=== PATIENT | female | born 1930 | race Caucasian/White ===

== ENCOUNTER 2017-08-30 16:35 | Inpatient (IN) | payer MEDICARE, BC ==
[2017-08-30] MEDS ORDERED: HYDROmorphone 0.5 MG/0.5 ML SYRINGE IVP STA ×2 (17:17→19:38)
[2017-08-30] MEDS ORDERED: SODIUM CHLORIDE 0.9% 500 ML IV ONE (18:39)
--- NOTE | 2017-08-30 18:42 | XR ---
EXAMINATION TYPE: XR Hip RT and AP Pelvis DATE OF EXAM: 08/30/2017 COMPARISON: Prior pelvis dated 08/11/2017 HISTORY: Pain, deformity TECHNIQUE: A single AP view of the pelvis is obtained. Two views of the right hip are obtained. FINDINGS: There is no acute fracture/dislocation evident in the pelvis. The hip and sacroiliac join ts appear symmetric and unremarkable. The overlying soft tissue appears unremarkable. Two views of right hip show no acute fracture or dislocation. No focal lytic or sclerotic lesion see n in the proximal right femur. The overlying soft tissue is unremarkable. There is osteoarthritic c hange in the right hip. Postop change noted to the left hip is stable. Osteoarthritic change also pre sent in the left hip. IMPRESSION: There is no acute fracture or dislocation in the pelvis or right hip.
--- NOTE | 2017-08-30 18:44 | XR ---
Right femur HISTORY: Trauma and pain 2 views of the right femur There is a distal femoral oblique fracture with displacement at the level of the metaphysis proximal to the patient's distal femoral prosthesis. There is associated angulation posteriorly, no definite d islocation. IMPRESSION: Distal femoral fracture.
--- NOTE | 2017-08-30 18:45 | XR ---
EXAMINATION TYPE: XR chest 1V DATE OF EXAM: 08/30/2017 COMPARISON: Prior chest x-ray 06/16/2017 HISTORY: Trauma and pain, femoral fracture TECHNIQUE: Single frontal view of the chest is obtained. FINDINGS: Patient is rotated. Lung volumes are low. Interstitium is somewhat prominent. No evident p neumothorax or pleural effusion. Heart size is likely stable. Questionable nodule right midlung. IMPRESSION: Expiratory rotated exam. Follow-up as indicated.
--- NOTE | 2017-08-30 19:00 | ED ---
Fall HPI - General Chief Complaint: Fall Stated Complaint: Knee injury Time Seen by Provider: 08/30/17 17:04 Source: patient, RN notes reviewed Mode of arrival: EMS - History of Present Illness Initial Comments: This is an 87-year-old female who presents to the emergency department with chief complaint of fall injury. Patient was transported to the emergency department via EMS. The fall occurred at approximately 3:30 PM this afternoon. Patient is accompanied by her , daughter and son. They state patient has severe dementia so she is unable to contribute to the history. They state that they're unsure if patient was getting up to use the bathroom or getting up from the toilet to return to her room, however the patient fell from ground level while using a walker. denies any head injury or loss of consciousness. Patient is not on any blood thinners, only taking 81 mg of aspirin daily. Patient fell on a tile floor. They're concerned about patient' s right knee, as it appears deformed and she complains of pain. They state the patient was recently here in the emergency room on August 11 after sustaining a fall and breaking her wrist. She has been doing therapy at the home she lives at with her . Patient does not voice any other complaints at this time. - Related Data Home Medications Medication Instructions Recorded Confirmed Aspirin 81 mg PO DAILY@199902/15/14 08/30/17 Docusate [Colace] 100 mg PO BID@0800,199902/15/14 08/30/17 Ergocalciferol [Vitamin D2 50,000 unit PO Q14D 02/15/14 08/30/17 (DRISDOL)] Furosemide [Lasix] 20 mg PO BID@0800,1400 02/15/14 08/30/17 Hydrochlorothiazide [Hydrodiuril] 25 mg PO DAILY@199902/15/14 08/30/17 Lisinopril [Zestril] 10 mg PO BID@0800,199902/15/14 08/30/17 Multivitamin/Iron/Folic Acid 1 tab PO DAILY@199902/15/14 08/30/17 [Centrum Complete Multivit Tab] Propafenone HCl [Propafenone HCl 225 mg PO BID@0800,199902/15/14 08/30/17 ER] Simvastatin [Zocor] 40 mg PO DAILY@199902/15/14 08/30/17 Cranberry Fruit Concentrate [Azo 250 mg PO DAILY@199906/16/17 08/30/17 Cranberry] Levothyroxine Sodium [Synthroid] 175 mcg PO DAILY 06/16/17 08/30/17 Metoprolol Succinate [Toprol XL] 100 mg PO DAILY@0800 06/16/17 08/30/17 Sertraline HCl [Zoloft] 25 mg PO DAILY@199906/16/17 08/30/17 Vit C/E/Zn/Coppr/Lutein/Zeaxan 2 cap PO DAILY@199906/16/17 08/30/17 [Preservision Areds 2 Softgel] ALPRAZolam [Xanax] 0.25 mg PO TID@0800,1400,199908/11/17 08/30/17 Ensure 0.5 can PO BID 08/11/17 08/30/17 Loratadine [Claritin] 10 mg PO DAILY 08/11/17 08/30/17 Omeprazole 20 mg PO DAILY 08/11/17 08/30/17 Potassium Chloride ER [K-Dur 20] 10 meq PO DAILY 08/11/17 08/30/17 Allergies Allergy/AdvReac Type Severity Reaction Status Date / Time codeine Allergy Rash/Hives Verified 08/30/17 16:55 lorazepam [From Ativan] Allergy Anaphylaxis Verified 08/30/17 16:55 meperidine HCl [From Demerol] Allergy Rash/Hives Verified 08/30/17 16:55 Review of Systems ROS Statement: Those systems with pertinent positive or pertinent negative responses have been documented in the HPI. ROS Other: All systems not noted in ROS Statement are negative. Past Medical History Past Medical History: Dementia, Hyperlipidemia, Hypertension, Osteoarthritis (OA ), Supraventricular Tachycardia (SVT) Additional Past Medical History / Comment(s): cataracts samantha History of Any Multi-Drug Resistant Organisms: None Reported Past Surgical History: Cholecystectomy, Orthopedic Surgery, Tonsillectomy Additional Past Surgical History / Comment(s): left hip plate, right knee replaced, partial thyroid removed Past Anesthesia/Blood Transfusion Reactions: Previous Problems w/ Anesthesia, Motion Sickness Past Psychological History: No Psychological Hx Reported Smoking Status: Never smoker Past Alcohol Use History: Occasional, Rare Past Drug Use History: None Reported General Exam - General Exam Comments Initial Comments: General: Awake, well-developed; in no apparent distress. Patient does not contribute to history due to severe dementia. Family members are at bedside. HEENT: Head atraumatic, normocephalic. Pupils are equal, round and reactive to light. Extraocular movements intact. Oropharynx appears dry. Neck: Supple. Normal ROM. Cardiovascular: Regular rate and rhythm. No murmurs, rubs or gallops. Chest symmetrical. Respiratory: Lungs clear to auscultation bilaterally. No wheezes, rales or rhonchi. Normal respiratory effort with no use of accessory muscles. Abdomen: Soft, non-tender, non-distended. No rigidity, rebound or guarding. Normal bowel sounds in all 4 quadrants. Musculoskeletal: Patient unable to flex her right knee. Right leg is internally rotated and knee has obvious gross deformity. Tenderness on palpation of right knee. No tenderness on palpation of right hip. Pedal pulses are 2+ equal and palpable bilaterally. Patient has normal range of motion of the left lower extremity and bilateral upper extremities. Skin: [place], warm and dry without rashes or lesions. Neurological: Alert and oriented x1. Limitations: altered mental status Course Vital Signs 08/30/17 08/30/17 16:41 19:32 Temperature 97.6 F 98.2 F Pulse Rate 74 76 Respiratory 18 18 Rate Blood Pressure 129/60 158/75 O2 Sat by Pulse 96 95 Oximetry Medical Decision Making - Medical Decision Making This is an 87-year-old female who presents to the emergency department for evaluation following a fall this afternoon. Patient has severe dementia so was unable to contribute to the history. Her family members were present. Patient had an obvious deformity of the right knee. Pedal pulses are 2+ equal and palpable bilaterally. She has a history of total knee arthroplasty done by Dr. Deshpande. X-ray revealed a distal femoral fracture. I spoke with Georgina the on- call physician school psychologist assistant for [facility]. Patient will be admitted to [facility]. A knee immobilizer was placed to the right knee. Patient's pain is controlled with Dilaudid. Basic labs are drawn patient had a be when of 44 and creatinine of 1.54. She was given fluid resuscitation while in the emergency department. Family members at bedside were made aware of the plan and they are in agreement. All questions were answered. - Lab Data Result diagrams: 08/30/17 19:30 08/30/17 19:30 Lab Results 08/30/17 08/30/17 Range/Units 19:30 19:30 WBC 9.9 (3.8-10.6) k/uL RBC 3.24 L (3.80-5.40) m/uL Hgb 9.5 L (11.4-16.0) gm/dL Hct 29.4 L (34.0-46.0) % MCV 90.5 (80.0-100.0) fL MCH 29.1 (25.0-35.0) pg MCHC 32.2 (31.0-37.0) g/dL RDW 14.0 (11.5-15.5) % Plt Count 223 (150-450) k/uL Neutrophils % 84 % Lymphocytes % 9 % Monocytes % 4 % Eosinophils % 0 % Basophils % 0 % Neutrophils # 8.3 H (1.3-7.7) k/uL Lymphocytes # 0.9 L (1.0-4.8) k/uL Monocytes # 0.4 (0-1.0) k/uL Eosinophils # 0.0 (0-0.7) k/uL Basophils # 0.0 (0-0.2) k/uL Sodium 137 (137-145) mmol/L Potassium 4.3 (3.5-5.1) mmol/L Chloride 100 (98-107) mmol/L Carbon Dioxide 27 (22-30) mmol/L Anion Gap 10 mmol/L BUN 44 H (7-17) mg/dL Creatinine 1.54 H (0.52-1.04) mg/dL Est GFR (MDRD) Af Amer 38 (>60 ml/min/1.73 sqM) Est GFR (MDRD) Non-Af 32 (>60 ml/min/1.73 sqM) Glucose 147 H (74-99) mg/dL Calcium 8.8 (8.4-10.2) mg/dL Total Bilirubin 0.3 (0.2-1.3) mg/dL AST 23 (14-36) U/L ALT 27 (9-52) U/L Alkaline Phosphatase 117 (38-126) U/L Total Protein 6.5 (6.3-8.2) g/dL Albumin 3.6 (3.5-5.0) g/dL - EKG Data EKG Comments: EKG 18:46:22. Sinus rhythm with first-degree AV block, nonspecific ST abnormality. Ventricular rate 75 bpm, MA interval 220, QRS duration 90, QT/QTc 402/448. - Radiology Data Radiology results: report reviewed Chest x-ray findings: Patient is rotated. Lung volumes are low. After stitching is somewhat prominent. No evident pneumothorax or pleural effusion. Heart size is likely stable. Questionable nodule right mid lung. Impression: Expiratory rotated exam. Follow-up as indicated. X-ray right hip and AP pelvis impression: There is no acute fracture or dislocation in the pelvis or right hip. X-ray right femur impression: Distal femoral fracture. CT brain and C-spine without contrast impression: 1. There is no acute fracture or dislocation evident in the cervical spine. 2. No acute intracranial hemorrhage, mass effect or midline shift is seen. Disposition Clinical Impression: Closed fracture of right distal femur, Fall Disposition: ADMITTED IP TO THIS [facility] Condition: Good Time of Disposition: 21:02
[2017-08-30] MEDS ORDERED: HYDROmorphone 0.5 MG/0.5 ML SYRINGE IM STA (19:25)
--- NOTE | 2017-08-30 19:29 | CT ---
EXAMINATION TYPE: CT brain cspine wo con DATE OF EXAM: 08/30/2017 COMPARISON: Prior CT brain and cervical spine 06/16/2017 HISTORY: Fall today. CT DLP: 1325 mGycm Automated exposure control for dose reduction was used. TECHNIQUE: CT scan of the head and cervical spine are performed without contrast. FINDINGS: There is no acute intracranial hemorrhage, mass effect, or midline shift identified. The ventricles and sulci are within normal limits in size. Brain density is stable. The globes are inta ct and the visualized sinuses are remarkable for air-fluid levels in the sphenoid sinus as on prior, suspect interval healing of patient's nasal bone fractures. There may be some improvement in aeration in the mastoids on the left. Cervical spine is visualized in its entirety from C1 through upper thoracic levels and demonstrates s atisfactory alignment without evidence of acute fracture or dislocation. Prevertebral soft tissue ap pears within normal limits. The C1-C2 articulation is unremarkable. Degenerative disc disease change is stable. IMPRESSION: 1. There is no acute fracture or dislocation evident in the cervical spine. 2. No acute intracranial hemorrhage, mass effect, or midline shift is seen.
[2017-08-30] MEDS ORDERED: NALOXONE 0.4 MG/ML 1 ML VIAL IV PRN (19:43)
[2017-08-30] MEDS ORDERED: ACETAMINOPHEN TAB 325 MG TAB PO PRN (19:43)
[2017-08-30] MEDS ORDERED: HYDROmorphone 2 MG/ML 1 ML SYRINGE IVP PRN (19:43)
[2017-08-30] MEDS ORDERED: SODIUM CHLORIDE 0.9% 1,000 ML IV SCH (19:45)
[2017-08-30 19:49] LABS: Basophils % (A) 0 %; Eosinophils % (A) 0 %; HCT 29.4 % (34.0-46.0); HGB 9.5 gm/dL (11.4-16.0); Lymphocytes # (A) 0.9 k/uL (1.0-4.8); Lymphocytes % (A) 9 %; MCH 29.1 pg (25.0-35.0); MCHC 32.2 g/dL (31.0-37.0); MCV 90.5 fL (80.0-100.0); Mean Platelet Volume 6.7; Monocytes # (A) 0.4 k/uL (0-1.0); Monocytes % (A) 4 %; Neutrophils # (A) 8.3 k/uL (1.3-7.7); Neutrophils % (A) 84 %; Platelet Count 223 k/uL (150-450); RBC 3.24 m/uL (3.80-5.40); WBC 9.9 k/uL (3.8-10.6)
[2017-08-30 19:57] LABS: Albumin 3.6 g/dL (3.5-5.0); Calcium 8.8 mg/dL (8.4-10.2); Potassium 4.3 mmol/L (3.5-5.1); Total Bilirubin 0.3 mg/dL (0.2-1.3); Total Protein 6.5 g/dL (6.3-8.2)
[2017-08-30] MEDS ORDERED: SODIUM CHLORIDE 0.9% 500 ML IV STA (20:59)
--- NOTE | 2017-08-30 21:32 | ED ---
General Adult HPI - General Chief complaint: Fall Stated complaint: Knee injury Time Seen by Provider: 08/30/17 17:04 Source: patient, family, RN notes reviewed, old records reviewed Mode of arrival: EMS Limitations: altered mental status - History of Present Illness Initial comments: Chief complaint and history of present illness an 87-year-old female here with a history of glioblastoma multi-forming. She had surgery on in the past half year recurrent has been proven by a recent MRI. The patient knows of these results. Patient also reports that she stood up after going to the bathroom and before she reached her walker she stumbled and fell. Complains discomfort to her left shoulder left hip and lumbosacral spine. Denies any head or neck injuries. - Related Data Home Medications Medication Instructions Recorded Confirmed Aspirin 81 mg PO DAILY@199902/15/14 08/30/17 Docusate [Colace] 100 mg PO BID@0800,199902/15/14 08/30/17 Ergocalciferol [Vitamin D2 50,000 unit PO Q14D 02/15/14 08/30/17 (DRISDOL)] Furosemide [Lasix] 20 mg PO BID@0800,1400 02/15/14 08/30/17 Hydrochlorothiazide [Hydrodiuril] 25 mg PO DAILY@199902/15/14 08/30/17 Lisinopril [Zestril] 10 mg PO BID@0800,199902/15/14 08/30/17 Multivitamin/Iron/Folic Acid 1 tab PO DAILY@199902/15/14 08/30/17 [Centrum Complete Multivit Tab] Propafenone HCl [Propafenone HCl 225 mg PO BID@0800,199902/15/14 08/30/17 ER] Simvastatin [Zocor] 40 mg PO DAILY@199902/15/14 08/30/17 Cranberry Fruit Concentrate [Azo 250 mg PO DAILY@199906/16/17 08/30/17 Cranberry] Levothyroxine Sodium [Synthroid] 175 mcg PO DAILY 06/16/17 08/30/17 Metoprolol Succinate [Toprol XL] 100 mg PO DAILY@0800 06/16/17 08/30/17 Sertraline HCl [Zoloft] 25 mg PO DAILY@199906/16/17 08/30/17 Vit C/E/Zn/Coppr/Lutein/Zeaxan 2 cap PO DAILY@199906/16/17 08/30/17 [Preservision Areds 2 Softgel] ALPRAZolam [Xanax] 0.25 mg PO TID@0800,1400,199908/11/17 08/30/17 Ensure 0.5 can PO BID 08/11/17 08/30/17 Loratadine [Claritin] 10 mg PO DAILY 08/11/17 08/30/17 Omeprazole 20 mg PO DAILY 08/11/17 08/30/17 Potassium Chloride ER [K-Dur 20] 10 meq PO DAILY 08/11/17 08/30/17 Allergies Allergy/AdvReac Type Severity Reaction Status Date / Time codeine Allergy Rash/Hives Verified 08/30/17 16:55 lorazepam [From Ativan] Allergy Anaphylaxis Verified 08/30/17 16:55 meperidine HCl [From Demerol] Allergy Rash/Hives Verified 08/30/17 16:55 Review of Systems ROS Statement: Those systems with pertinent positive or pertinent negative responses have been documented in the HPI. View of systems. Currently no complaint of visual acuity changes denies any headache. No neck pain. She has left shoulder discomfort but full range of motion denies chest pain or shortness of breath complains of lumbar pain. Also left hip area pain. States she fell while in her bathroom. All systems were reviewed. Past medical problems significant for brain cancer, glioblastoma diagnosed this past January. She's had surgery. Also history of insulin-dependent diabetes mellitus, and hypertension. Her surgeries include hysterectomy, she's had blood clot removed from her leg and lung. Family history noncontributory. ROS Other: All systems not noted in ROS Statement are negative. Past Medical History Past Medical History: Dementia, Hyperlipidemia, Hypertension, Osteoarthritis (OA ), Supraventricular Tachycardia (SVT) Additional Past Medical History / Comment(s): cataracts samantha History of Any Multi-Drug Resistant Organisms: None Reported Past Surgical History: Cholecystectomy, Orthopedic Surgery, Tonsillectomy Additional Past Surgical History / Comment(s): left hip plate, right knee replaced, partial thyroid removed Past Anesthesia/Blood Transfusion Reactions: Previous Problems w/ Anesthesia, Motion Sickness Past Psychological History: No Psychological Hx Reported Smoking Status: Never smoker Past Alcohol Use History: Occasional, Rare Past Drug Use History: None Reported General Exam Limitations: altered mental status Course Vital Signs 08/30/17 08/30/17 08/30/17 16:41 19:32 21:20 Temperature 97.6 F 98.2 F 97.0 F L Pulse Rate 74 76 71 Respiratory 18 18 18 Rate Blood Pressure 129/60 158/75 131/63 O2 Sat by Pulse 96 95 95 Oximetry Medical Decision Making - Medical Decision Making Rectal decision making; patient reports she fell recently. Complains of discomfort to the lumbar spine left shoulder and left hip area. Denies any head or neck injuries. X-rays of the left hip were done and reviewed by radiologist his impression is there is no acute fracture or dislocation in the pelvis or left hip. As read by Dr. Kothari X-rays of the lumbosacral spine were done and reviewed by the radiologist his impression is degenerative disc disease, osteopenia, facet arthropathy. Possible abdominal aortic aneurysm, follow-up nonemergent exam recommended. As read by Dr. Kothari X-ray of the patient's left shoulder was done and reviewed radiologist his impression is no acute fracture dislocation evident. As read by Dr. Kothari On emergency room the patient received a [place] at her request. Her daughter is here to drive her home. She's been advised follow-up with family physician as well as her oncologist for further evaluation of her recurrent glioblastoma. - Lab Data Result diagrams: 08/30/17 19:30 08/30/17 19:30 Lab Results 08/30/17 08/30/17 Range/Units 19:30 19:30 WBC 9.9 (3.8-10.6) k/uL RBC 3.24 L (3.80-5.40) m/uL Hgb 9.5 L (11.4-16.0) gm/dL Hct 29.4 L (34.0-46.0) % MCV 90.5 (80.0-100.0) fL MCH 29.1 (25.0-35.0) pg MCHC 32.2 (31.0-37.0) g/dL RDW 14.0 (11.5-15.5) % Plt Count 223 (150-450) k/uL Neutrophils % 84 % Lymphocytes % 9 % Monocytes % 4 % Eosinophils % 0 % Basophils % 0 % Neutrophils # 8.3 H (1.3-7.7) k/uL Lymphocytes # 0.9 L (1.0-4.8) k/uL Monocytes # 0.4 (0-1.0) k/uL Eosinophils # 0.0 (0-0.7) k/uL Basophils # 0.0 (0-0.2) k/uL Sodium 137 (137-145) mmol/L Potassium 4.3 (3.5-5.1) mmol/L Chloride 100 (98-107) mmol/L Carbon Dioxide 27 (22-30) mmol/L Anion Gap 10 mmol/L BUN 44 H (7-17) mg/dL Creatinine 1.54 H (0.52-1.04) mg/dL Est GFR (MDRD) Af Amer 38 (>60 ml/min/1.73 sqM) Est GFR (MDRD) Non-Af 32 (>60 ml/min/1.73 sqM) Glucose 147 H (74-99) mg/dL Calcium 8.8 (8.4-10.2) mg/dL Total Bilirubin 0.3 (0.2-1.3) mg/dL AST 23 (14-36) U/L ALT 27 (9-52) U/L Alkaline Phosphatase 117 (38-126) U/L Total Protein 6.5 (6.3-8.2) g/dL Albumin 3.6 (3.5-5.0) g/dL Disposition Clinical Impression: Closed fracture of right distal femur, Fall Disposition: ADMITTED IP TO THIS HOSP Condition: Good
[2017-08-30 22:26] VITALS: BMI 24.9
[2017-08-31] MEDS: HYDROmorphone 0.5 MG/0.5 ML SYRINGE IVP PRN (05:51)
[2017-08-31] MEDS ORDERED: LEVOTHYROXINE 100 MCG TAB PO SCH (06:30)
[2017-08-31] MEDS ORDERED: LEVOTHYROXINE 75 MCG TAB PO SCH (06:30)
[2017-08-31 07:17] LABS: Basophils % (A) 0 %; Eosinophils % (A) 0 %; HCT 26.2 % (34.0-46.0); HGB 8.2 gm/dL (11.4-16.0); Lymphocytes # (A) 0.7 k/uL (1.0-4.8); Lymphocytes % (A) 10 %; MCH 28.7 pg (25.0-35.0); MCHC 31.3 g/dL (31.0-37.0); MCV 91.5 fL (80.0-100.0); Mean Platelet Volume 7.6; Monocytes # (A) 0.4 k/uL (0-1.0); Monocytes % (A) 5 %; Neutrophils # (A) 6.2 k/uL (1.3-7.7); Neutrophils % (A) 82 %; Platelet Count 213 k/uL (150-450); RBC 2.86 m/uL (3.80-5.40); RDW 14.7 % (11.5-15.5); WBC 7.5 k/uL (3.8-10.6)
[2017-08-31] MEDS ORDERED: PANTOPRAZOLE 40 MG TABLET PO SCH (07:30)
[2017-08-31 07:38] LABS: Calcium 8.5 mg/dL (8.4-10.2); Potassium 3.9 mmol/L (3.5-5.1)
[2017-08-31] MEDS ORDERED: PANTOPRAZOLE SODIUM 40 MG GRANULE PKT PO SCH (07:45)
[2017-08-31] MEDS ORDERED: DOCUSATE 100 MG CAP PO SCH (08:00)
[2017-08-31] MEDS ORDERED: PROPAFENONE 225 MG PO SCH ×2 (08:00→09:00)
[2017-08-31] MEDS ORDERED: ALPRAZolam 0.25 MG TAB PO SCH (08:00)
[2017-08-31] MEDS ORDERED: LISINOPRIL 10 MG TAB PO SCH (08:00)
[2017-08-31] MEDS ORDERED: METOPROLOL SUCCINATE (ER) 100 MG TAB.ER.24H PO SCH (08:00)
[2017-08-31] MEDS: METOPROLOL SUCCINATE (ER) 100 MG TAB.ER.24H PO SCH (08:54)
[2017-08-31] MEDS: LISINOPRIL 10 MG TAB PO SCH ×2 (08:55→22:09)
[2017-08-31] MEDS: SERTRALINE 25 MG TAB PO SCH (08:55)
[2017-08-31] MEDS: LORATADINE 10 MG TAB PO SCH (08:55)
[2017-08-31] MEDS: DOCUSATE 100 MG CAP PO SCH ×2 (08:55→22:09)
[2017-08-31] MEDS: MULTIVITAMINS, THERA 1 EACH TAB PO SCH (08:55)
[2017-08-31] MEDS ORDERED: ENSURE PO SCH (09:00)
[2017-08-31] MEDS ORDERED: LORATADINE 10 MG TAB PO SCH (09:00)
[2017-08-31] MEDS: ALPRAZolam 0.25 MG TAB PO SCH ×3 (09:03→22:17)
--- NOTE | 2017-08-31 09:54 | P.HPOR ---
History of Present Illness H&P Date: 08/31/17 This is an 87-year-old female who has admitted for right distal femur fracture. Patient has a history of dementia and is a poor historian. No family is present in the room. Patient was evaluated in the emergency room on 08/30/2017 for a fall that occurred when the patient was walking back from the bathroom in her assisted living center. Patient has a history of right total knee arthroplasty. Patient denies any recent fever, chills, nausea/vomiting/diarrhea , back pain, numbness, tingling, headache, or visual changes, or any other complaints. Review of Systems See HPI. Past Medical History Past Medical History: Dementia, Hyperlipidemia, Hypertension, Osteoarthritis (OA ), Supraventricular Tachycardia (SVT) Additional Past Medical History / Comment(s): cataracts samantha History of Any Multi-Drug Resistant Organisms: None Reported Past Surgical History: Cholecystectomy, Orthopedic Surgery, Tonsillectomy Additional Past Surgical History / Comment(s): left hip plate, right knee replaced, partial thyroid removed Past Anesthesia/Blood Transfusion Reactions: Previous Problems w/ Anesthesia, Motion Sickness Past Psychological History: No Psychological Hx Reported Smoking Status: Never smoker Past Alcohol Use History: Occasional, Rare Past Drug Use History: None Reported Medications and Allergies Home Medications Medication Instructions Recorded Confirmed Type Aspirin 81 mg PO DAILY@199902/15/14 08/30/17 History Docusate [Colace] 100 mg PO BID@0800,199902/15/14 08/30/17 History Ergocalciferol [Vitamin D2 50,000 unit PO Q14D 02/15/14 08/30/17 History (DRISDOL)] Furosemide [Lasix] 20 mg PO BID@0800,1400 02/15/14 08/30/17 History Hydrochlorothiazide [Hydrodiuril] 25 mg PO DAILY@199902/15/14 08/30/17 History Lisinopril [Zestril] 10 mg PO BID@0800,199902/15/14 08/30/17 History Multivitamin/Iron/Folic Acid 1 tab PO DAILY@199902/15/14 08/30/17 History [Centrum Complete Multivit Tab] Propafenone HCl [Propafenone HCl 225 mg PO BID@0800,199902/15/14 08/30/17 History ER] Simvastatin [Zocor] 40 mg PO DAILY@199902/15/14 08/30/17 History Cranberry Fruit Concentrate [Azo 250 mg PO DAILY@199906/16/17 08/30/17 History Cranberry] Levothyroxine Sodium [Synthroid] 175 mcg PO DAILY 06/16/17 08/30/17 History Metoprolol Succinate [Toprol XL] 100 mg PO DAILY@0800 06/16/17 08/30/17 History Sertraline HCl [Zoloft] 25 mg PO DAILY@199906/16/17 08/30/17 History Vit C/E/Zn/Coppr/Lutein/Zeaxan 2 cap PO DAILY@199906/16/17 08/30/17 History [Preservision Areds 2 Softgel] ALPRAZolam [Xanax] 0.25 mg PO TID@0800,1400,199908/11/17 08/30/17 History Ensure 0.5 can PO BID 08/11/17 08/30/17 History Loratadine [Claritin] 10 mg PO DAILY 08/11/17 08/30/17 History Omeprazole 20 mg PO DAILY 08/11/17 08/30/17 History Potassium Chloride ER [K-Dur 20] 10 meq PO DAILY 08/11/17 08/30/17 History Allergies Allergy/AdvReac Type Severity Reaction Status Date / Time codeine Allergy Rash/Hives Verified 08/30/17 16:55 lorazepam [From Ativan] Allergy Anaphylaxis Verified 08/30/17 16:55 meperidine HCl [From Demerol] Allergy Rash/Hives Verified 08/30/17 16:55 Physical Examination On exam patient is in no acute distress. Patient has a history of dementia. Knee immobilizer is removed and there is deformity of the right lower extremity. The right distal femur is tender to palpation. Skin is intact. Mild soft tissue swelling. Calf is soft and nontender. Dorsalis pedis pulses 2+ . There is no tenderness to palpation, deformity, ecchymosis or swelling over the head, neck, bilateral upper extremities or left lower extremity. Results X-rays of the right femur show a distal femur fracture proximal to right total knee arthroplasty. X-rays of the right hip and pelvis are negative for any acute fracture dislocation. CT of the head and neck is negative for any acute fracture or dislocation of the cervical spine. No acute intracranial hemorrhage, mass effect, or midline shift seen. - Labs Labs: Abnormal Lab Results - Last 24 Hours (Table) 08/30/17 08/30/17 08/31/17 Range/Units 19:30 19:30 06:13 RBC 3.24 L 2.86 L (3.80-5.40) m/uL Hgb 9.5 L 8.2 L (11.4-16.0) gm/dL Hct 29.4 L 26.2 L (34.0-46.0) % Neutrophils # 8.3 H (1.3-7.7) k/uL Lymphocytes # 0.9 L 0.7 L (1.0-4.8) k/uL BUN 44 H (7-17) mg/dL Creatinine 1.54 H (0.52-1.04) mg/dL Glucose 147 H (74-99) mg/dL 08/31/17 Range/Units 06:13 RBC (3.80-5.40) m/uL Hgb (11.4-16.0) gm/dL Hct (34.0-46.0) % Neutrophils # (1.3-7.7) k/uL Lymphocytes # (1.0-4.8) k/uL BUN 40 H (7-17) mg/dL Creatinine 1.30 H (0.52-1.04) mg/dL Glucose 147 H (74-99) mg/dL H & H 08/30/17 08/31/17 Range/Units 19:30 06:13 Hgb 9.5 L 8.2 L (11.4-16.0) gm/dL Hct 29.4 L 26.2 L (34.0-46.0) % Result Diagrams: 08/31/17 06:13 08/31/17 06:13 Assessment and Plan (1) Closed fracture of right distal femur Current Visit: Yes Status: Acute Code(s): S72.401A - UNSP FRACTURE OF LOWER END OF RIGHT FEMUR, INIT FOR CLOS FX SNOMED Code(s): 084087654 (2) Fall Current Visit: Yes Status: Acute Code(s): W19.XXXA - UNSPECIFIED FALL, INITIAL ENCOUNTER SNOMED Code(s): 3521241 Plan: #1. Continue knee immobilizer and nonweightbearing to the right lower extremity. #2. Continue pain control #3. ORIF right distal femur scheduled for 09/01/2017 pending medical clearance consent.
[2017-08-31] MEDS: PROPAFENONE 150 MG TAB PO SCH ×3 (10:25→22:06)
[2017-08-31] MEDS: SODIUM CHLORIDE 0.9% 1,000 ML IV SCH ×2 (10:49→22:10)
--- NOTE | 2017-08-31 11:09 | P.CONS ---
History of Present Illness - Reason for Consult Consult date: 08/31/17 Medical management Requesting physician: Castro Alexis - Chief Complaint Status post fall with right distal femur fracture - History of Present Illness This is an 87-year-old female patient of Dr. Garrett with past medical history of dementia, hypertension, hyperlipidemia, supraventricular tachycardia , generalized osteoarthritis, hypothyroidism, patient was in her assisted living where she was trying to go to the bathroom and she fell and landed on the right side she sustained a distal right femur fracture for which she was evaluated in the emergency department and admitted under orthopedic surgery and we were consulted for preoperative medical clearance. Patient is very poor historian she has significant dementia and she does not remember what happened, most information was gathered from the chart as the patient lives in [facility]ursing home, where the fall happened and the patient was shipped to the ER at [facility] because of that and she was found to have a right distal femur fracture. Patient scheduled to go for ORIF of the right femur tomorrow morning. I reviewed her 12-lead EKG that showed normal sinus rhythm with nonspecific ST- T changes, echocardiogram was obtained for further evaluation. Review of Systems Constitutional: Denies chronic headaches, Denies lethargy, Denies malaise, Denies weight gain, Denies weight loss Eyes: denies blurred vision, denies bulging eye, denies decreased vision Ears: deny: decreased hearing Ears, nose, mouth and throat: Denies dysphagia, Denies neck lump, Denies sore throat, Denies vertigo Cardiovascular: Denies chest pain, Denies decreased exercise tolerance, Denies lightheadedness, Denies rapid heart beat, Denies shortness of breath, Denies syncope Respiratory: Denies congestion, Denies cough, Denies cough with sputum, Denies home oxygen, Denies sleep apnea, Denies snoring, Denies wheezing Gastrointestinal: Denies abdominal pain, Denies belching, Denies BRBPR, Denies heartburn, Denies melena, Denies nausea, Denies vomiting Genitourinary: Denies dysuria, Denies hematuria Musculoskeletal: Reports fractures, Reports gait dysfunction Musculoskeletal: right: ankle pain, ankle stiffness, ankle swelling, hip pain, hip stiffness, hip swelling, knee pain, knee stiffness, absent: elbow pain, elbow stiffness, elbow swelling, foot pain, foot stiffness, foot swelling, hand pain, hand stiffness, hand swelling, knee swelling, shoulder pain, shoulder stiffness, shoulder swelling, wrist pain, wrist stiffness, wrist swelling Integumentary: Denies pruritus, Denies rash Neurological: Reports confusion, Reports memory loss, Reports weakness, Denies tingling, Denies tremors Psychiatric: Reports anxiety, Reports memory loss, Denies depression, Denies sadness/tearfulness, Denies sleep disturbances, Denies suicidal ideation Endocrine: Denies fatigue, Denies weight change Past Medical History Past Medical History: Dementia, GERD/Reflux, Hyperlipidemia, Hypertension, Memory Impairment, Musculoskeletal Disorder, Osteoarthritis (OA), Supraventricular Tachycardia (SVT), Thyroid Disorder Additional Past Medical History / Comment(s): cataracts samantha History of Any Multi-Drug Resistant Organisms: None Reported Past Surgical History: Cholecystectomy, Orthopedic Surgery, Tonsillectomy Additional Past Surgical History / Comment(s): left hip plate, right knee replaced, partial thyroid removed Past Anesthesia/Blood Transfusion Reactions: Previous Problems w/ Anesthesia, Motion Sickness Past Psychological History: No Psychological Hx Reported Smoking Status: Never smoker Past Alcohol Use History: Occasional, Rare Past Drug Use History: None Reported - Past Family History Mother Family Medical History: Coronary Artery Disease (CAD) (Mother at age 74 from CAD and diabetes complication.) Father Family Medical History: Neurologic Disorder (Father at age of 76 from Parkinson.) Brother(s) Family Medical History: Coronary Artery Disease (CAD), Diabetes Mellitus ( Patient has one brother with diabetes and CAD.) Sister(s) Family Medical History: COPD (Sister with history of COPD and permanent pacemaker.) Medications and Allergies Home Medications Medication Instructions Recorded Confirmed Type Aspirin 81 mg PO DAILY@199902/15/14 08/30/17 History Docusate [Colace] 100 mg PO BID@0800,199902/15/14 08/30/17 History Ergocalciferol [Vitamin D2 50,000 unit PO Q14D 02/15/14 08/30/17 History (DRISDOL)] Furosemide [Lasix] 20 mg PO BID@0800,1400 02/15/14 08/30/17 History Hydrochlorothiazide [Hydrodiuril] 25 mg PO DAILY@199902/15/14 08/30/17 History Lisinopril [Zestril] 10 mg PO BID@0800,199902/15/14 08/30/17 History Multivitamin/Iron/Folic Acid 1 tab PO DAILY@199902/15/14 08/30/17 History [Centrum Complete Multivit Tab] Propafenone HCl [Propafenone HCl 225 mg PO BID@0800,199902/15/14 08/30/17 History ER] Simvastatin [Zocor] 40 mg PO DAILY@199902/15/14 08/30/17 History Cranberry Fruit Concentrate [Azo 250 mg PO DAILY@199906/16/17 08/30/17 History Cranberry] Levothyroxine Sodium [Synthroid] 175 mcg PO DAILY 06/16/17 08/30/17 History Metoprolol Succinate [Toprol XL] 100 mg PO DAILY@0806/16/17 08/30/17 History Sertraline HCl [Zoloft] 25 mg PO DAILY@199906/16/17 08/30/17 History Vit C/E/Zn/Coppr/Lutein/Zeaxan 2 cap PO DAILY@199906/16/17 08/30/17 History [Preservision Areds 2 Softgel] ALPRAZolam [Xanax] 0.25 mg PO TID@0800,1400,199908/11/17 08/30/17 History Ensure 0.5 can PO BID 08/11/17 08/30/17 History Loratadine [Claritin] 10 mg PO DAILY 08/11/17 08/30/17 History Omeprazole 20 mg PO DAILY 08/11/17 08/30/17 History Potassium Chloride ER [K-Dur 20] 10 meq PO DAILY 08/11/17 08/30/17 History Allergies Allergy/AdvReac Type Severity Reaction Status Date / Time codeine Allergy Rash/Hives Verified 08/30/17 16:55 lorazepam [From Ativan] Allergy Anaphylaxis Verified 08/30/17 16:55 meperidine HCl [From Demerol] Allergy Rash/Hives Verified 08/30/17 16:55 Physical Exam Vitals: Vital Signs Temp Pulse Pulse Resp BP BP Pulse Ox 08/31/17 08:53 97.5 F L 72 16 132/70 95 08/31/17 00:16 97.8 F 73 16 125/72 95 08/30/17 21:40 97.6 F 72 16 122/59 96 08/30/17 21:20 97.0 F L 71 18 131/63 95 08/30/17 19:32 98.2 F 76 18 158/75 95 08/30/17 16:41 97.6 F 74 18 129/60 96 Intake and Output 08/30/17 08/31/17 08/31/17 22:59 06:59 14:59 Other: Voiding Method Incontinent # Voids 1 Weight 74.389 kg - Constitutional General appearance: average body habitus, no acute distress - EENT Eyes: anicteric sclerae, EOMI, PERRLA, no ptosis, normal appearance ENT: hard of hearing, NA/AT, normal oropharynx, no thrush Ears: bilateral: normal - Neck Neck: no lymphadenopathy, no rigidity, no stridor, no thyromegaly Carotids: bilateral: upstroke delayed Thyroid: bilateral: normal size - Respiratory Respiratory: bilateral: diminished, negative: dullness, rales, rhonchi, wheezing , prolonged expiration, prolonged inspiration - Cardiovascular Rhythm: regular Heart sounds: normal: S1, S2 Abnormal Heart Sounds: systolic murmur, no S3 Gallop, no S4 Gallop, no click - Gastrointestinal General gastrointestinal: normal bowel sounds, no rigid, no tenderness, no umbilical hernia, no ventral hernia - Integumentary Integumentary: normal, normal turgor - Neurologic Neurologic: CNII-XII intact, focal deficits - Musculoskeletal Musculoskeletal: generalized weakness, strength equal bilaterally - Psychiatric Psychiatric: no A&O x's 3, no appropriate affect, no intact judgment & insight Results CBC & Chem 7: 09/01/17 17:42 08/31/17 06:13 Labs: Abnormal Lab Results - Last 24 Hours (Table) 08/30/17 08/30/17 08/31/17 Range/Units 19:30 19:30 06:13 RBC 3.24 L 2.86 L (3.80-5.40) m/uL Hgb 9.5 L 8.2 L (11.4-16.0) gm/dL Hct 29.4 L 26.2 L (34.0-46.0) % Neutrophils # 8.3 H (1.3-7.7) k/uL Lymphocytes # 0.9 L 0.7 L (1.0-4.8) k/uL BUN 44 H (7-17) mg/dL Creatinine 1.54 H (0.52-1.04) mg/dL Glucose 147 H (74-99) mg/dL 08/31/17 Range/Units 06:13 RBC (3.80-5.40) m/uL Hgb (11.4-16.0) gm/dL Hct (34.0-46.0) % Neutrophils # (1.3-7.7) k/uL Lymphocytes # (1.0-4.8) k/uL BUN 40 H (7-17) mg/dL Creatinine 1.30 H (0.52-1.04) mg/dL Glucose 147 H (74-99) mg/dL Assessment and Plan Assessment: Assessment and Plan: 1. Status post fall with right distal femur fracture. Patient was seen in consultation by orthopedic surgery, she is going to ORIF tomorrow morning, 12- lead EKG was obtained showed normal sinus rhythm with no acute ST-T wave changes , echocardiogram was obtained, to obtain LV function, there is no Indication for the proposed surgical intervention, surgery may carry the risk a few complications, we will maintain patient on beta marlo in the form of metoprolol, and monitor her postoperative state with anticoagulation. 2. Acute kidney injury due to poor oral intake of fluid. IV fluid in the form of normal saline at 75 ml/ hour, repeat CMP magnesium tomorrow morning. 3. Hypertension and hypertensive cardiovascular disease. Continue metoprolol 100 mg orally once every day as well as lisinopril 10 mg orally once every day. 4. Hypothyroidism. Continue patient on Synthroid 175 g orally once every day. 5. Hyperlipidemia. Continue patient on Lipitor 10 mg orally once every day. 6. Atrial tachycardia. Continue patient on propafenone 150 mg orally 3 times every day. 7. Vascular dementia. Monitor patient for behavioral disturbances postoperatively. 8. Osteoarthritis. Continue current pain management. 9. Anxiety disorder. Continue with sertraline 25 mg orally once every day. 10. ALLERGIC rhinitis. Continue loratadine 10 mg orally once every day. 11. Vitamin D deficiency. Continue vitamin D 50,000 units once every week. 12. DVT prophylaxis. Patient will be restarted Lovenox 30 mg subcutaneously every 12 hours postoperatively, along with Coumadin keep her INR between 2-3. 13. GI prophylaxis. Start the patient on Protonix 40 mg orally daily. 14. Osteoporosis. Patient will need to be started on prolia twice a year as an outpatient. 15. UTI. Continue patient on Rocephin, obtain urine culture and blood culture. 16. Patient is no CODE STATUS. 17. Thank you Dr. Alexis for allowing me to participate in the care of your patient, we will follow the patient along with you.
[2017-08-31] MEDS ORDERED: SERTRALINE 25 MG TAB PO SCH (20:00)
[2017-08-31] MEDS ORDERED: NON-FORMULARY DRUG (Cranberry Fruit Concentrate [Azo Cranberry] 250 MG) PO SCH (20:00)
[2017-08-31] MEDS ORDERED: [UNRECOGNIZED DRUG - OTHER] PO SCH (20:00)
[2017-08-31] MEDS ORDERED: ATORVASTATIN 20 MG TAB PO SCH (20:00)
[2017-08-31] MEDS ORDERED: MULTIVITAMINS, THERA 1 EACH TAB PO SCH (20:00)
[2017-08-31] MEDS: ATORVASTATIN 20 MG TAB PO SCH (22:09)
[2017-09-01] MEDS: HYDROmorphone 0.5 MG/0.5 ML SYRINGE IVP PRN ×2 (02:20→21:06)
[2017-09-01] MEDS: LEVOTHYROXINE 75 MCG TAB PO SCH (07:36)
[2017-09-01] MEDS: ALPRAZolam 0.25 MG TAB PO SCH ×4 (07:36→21:07)
[2017-09-01] MEDS: PANTOPRAZOLE 40 MG TABLET PO SCH (07:36)
[2017-09-01] MEDS: LEVOTHYROXINE 100 MCG TAB PO SCH (07:36)
[2017-09-01] MEDS: DOCUSATE 100 MG CAP PO SCH (07:37)
[2017-09-01] MEDS: LORATADINE 10 MG TAB PO SCH (07:37)
[2017-09-01] MEDS: MULTIVITAMINS, THERA 1 EACH TAB PO SCH (07:37)
[2017-09-01] MEDS: SERTRALINE 25 MG TAB PO SCH (07:37)
[2017-09-01] MEDS: PROPAFENONE 150 MG TAB PO SCH ×3 (07:44→21:12)
[2017-09-01] MEDS: LISINOPRIL 10 MG TAB PO SCH ×2 (07:44→21:08)
[2017-09-01] MEDS: METOPROLOL SUCCINATE (ER) 100 MG TAB.ER.24H PO SCH (07:44)
[2017-09-01] MEDS: SODIUM CHLORIDE 0.9% 1,000 ML IV SCH ×2 (07:45→16:39)
[2017-09-01] MEDS ORDERED: NALOXONE 0.4 MG/ML 1 ML VIAL IV PRN (08:25)
[2017-09-01] MEDS ORDERED: MAGNESIUM HYDROXIDE 2,400 MG/10 ML CUP PO PRN (08:25)
[2017-09-01] MEDS ORDERED: HYDROmorphone 0.5 MG/0.5 ML SYRINGE IVP PRN ×2 (08:25)
[2017-09-01] MEDS ORDERED: HYDROcodone/APAP 5-325MG 1 EACH TAB PO PRN ×2 (08:25)
[2017-09-01] MEDS ORDERED: KETAMINE 10 MG/ML 20 ML VIAL ONE (08:36)
[2017-09-01] MEDS ORDERED: PHENYLEPHRINE-0.9% NACL SYG 1 MG/10 ML SYRINGE ONE (08:36)
[2017-09-01] MEDS ORDERED: fentaNYL (PF) 50 MCG/ML 2 ML AMP ONE (08:36)
[2017-09-01] MEDS ORDERED: diphenhydrAMINE 50 MG/ML 1 ML VIAL ONE (08:36)
[2017-09-01] MEDS ORDERED: IV FLUID CONTINUATION 500 ML IV ONE (08:36)
[2017-09-01] MEDS ORDERED: SODIUM CHLORIDE 0.9% 100 ML with ceFAZolin 2,000 MG IV ONE ×2 (09:07)
[2017-09-01 09:08] LABS: Basophils % (A) 0 %; Eosinophils # (A) 0.1 k/uL (0-0.7); Eosinophils % (A) 1 %; HCT 24.7 % (34.0-46.0); HGB 7.7 gm/dL (11.4-16.0); Lymphocytes # (A) 1.1 k/uL (1.0-4.8); Lymphocytes % (A) 12 %; MCH 29.3 pg (25.0-35.0); MCHC 31.3 g/dL (31.0-37.0); MCV 93.6 fL (80.0-100.0); Mean Platelet Volume 7.1; Monocytes # (A) 0.6 k/uL (0-1.0); Monocytes % (A) 7 %; Neutrophils # (A) 7.1 k/uL (1.3-7.7); Neutrophils % (A) 77 %; Platelet Count 196 k/uL (150-450); RBC 2.64 m/uL (3.80-5.40); RDW 13.9 % (11.5-15.5); WBC 9.3 k/uL (3.8-10.6)
[2017-09-01] MEDS ORDERED: ceFAZolin 1,000 MG in SODIUM CHLORIDE 0.9% 1,000 ML IRRIGATION ONE (09:18)
[2017-09-01] MEDS ORDERED: LACTATED RINGERS 1,000 ML IV ONE ×2 (09:40)
--- NOTE | 2017-09-01 10:54 | P.OP ---
Date of Procedure: 09/01/17 Preoperative Diagnosis: Comminuted periprosthetic distal femur fracture right Postoperative Diagnosis: Comminuted periprosthetic distal femur fracture, right Procedure(s) Performed: Open reduction and internal fixation comminuted periprosthetic fracture, right distal femur Implants: [employer] right 8 hole distal femoral plate. Multiple locking and nonlocking screws. Anesthesia: spinal Surgeon: Castro Alexis Commis Chef #1: Georgina Dai Estimated Blood Loss (ml): 150 Pathology: none sent Condition: stable Disposition: PACU Indications for Procedure: This is an 87-year-old female who fell while at assisted living. Per the patient's family, she is a very minimal ambulator and has dementia. She sustained a comminuted displaced periprosthetic right distal femur fracture above a right knee replacement. After discussing the surgical and nonsurgical treatment options for her family at length, I have recommended an open reduction and internal fixation of right distal femur and informed consent was obtained. Operative Findings: The operative findings are consistent with a comminuted periprosthetic right distal femur fracture Description of Procedure: The patient was seen in the preoperative area. The consent was reviewed, and the operative site was marked with a skin marker. The patient was then brought to the operating room, and given 2 g of Ancef intravenously. Spinal anesthetic was administered by the anesthesia department. A Maguire catheter was then placed by the nursing staff. Patient was then placed on the operating table supine, with the bony prominences well-padded. The right lower extremity was then prepped and draped in usual sterile fashion. A universal timeout was then performed which confirmed the patient's name, surgical site, ALLERGIES, and consent. The patient is leg was placed on a radiolucent triangle. C-arm was used to visualize the fracture site. An incision was made on the lateral aspect of the knee through the skin and subcutaneous tissues, then through the fascia. Through this incision, the fracture was able to be reduced by manual means and also with traction. The appropriate plate was placed on the lateral aspect of the femur and held provisionally both proximally and distally. The proximal screws were placed through small stab incisions in the skin. Fluoroscopic x-rays confirmed reduction of the fracture, and placement of the plate. Screws were then placed both proximally and distally, both locking and nonlocking to secure the fracture site. After the final screws were placed, final x-ray was obtained which show the fracture reduced in good position alignment, and the screws and plate in good position alignment. The knee was then taken through range of motion under fluoroscopy and the fracture was found to be stable. The wounds were irrigated with sterile saline. Closed with #1 Vicryl for the fascia. A 2-0 Vicryl for subcutaneous tissues, and kenny for the skin. Sterile dressings were applied. She was then taken to the recovery room in stable condition. Asst. AMITA Hammond was required due the complexity of surgery the need for skilled surgical services assistant.
--- NOTE | 2017-09-01 10:55 | FL ---
FLUOROSCOPY 173 seconds of fluoroscopy time were utilized during internal fixation of the distal right femur. 3 i mages document the procedure.
[2017-09-01 11:54] LABS: Appearance,Urine Turbid (Clear); Bilirubin,Urine Negative (Negative); Blood,Urine Small (Negative); Color,Urine Yellow; Glucose,Urine (UA) Negative (Negative); Ketones,Urine Negative (Negative); Leukocyte Esterase,Urine Large (Negative); Nitrite,Urine Negative (Negative); PH, Urine 5.5 (5.0-8.0); Protein,Urine Trace (Negative); RBC,Urine 29 /hpf (0-5); Specific Gravity,Urine 1.014 (1.001-1.035); Urobilinogen,Urine <2.0 mg/dL (<2.0); WBC,Urine >182 /hpf (0-5)
[2017-09-01] MEDS ORDERED: FUROSEMIDE 10 MG/ML 2 ML VIAL IV ONE (11:59)
[2017-09-01] MEDS: ENOXAPARIN 30 MG/0.3 ML SYRINGE SQ SCH ×2 (12:17→21:08)
--- NOTE | 2017-09-01 12:32 | P.PN ---
Subjective Progress Note Date: 09/01/17 This is an 87-year-old female patient of Dr. Garrett with past medical history of dementia, hypertension, hyperlipidemia, supraventricular tachycardia , generalized osteoarthritis, hypothyroidism, patient was in her assisted living where she was trying to go to the bathroom and she fell and landed on the right side she sustained a distal right femur fracture for which she was evaluated in the emergency department and admitted under orthopedic surgery and we were consulted for preoperative medical clearance. Patient is very poor historian she has significant dementia and she does not remember what happened, most information was gathered from the chart as the patient lives in [facility], where the fall happened and the patient was shipped to the ER at [facility] because of that and she was found to have a right distal femur fracture. Patient scheduled to go for ORIF of the right femur tomorrow morning. I reviewed her 12-lead EKG that showed normal sinus rhythm with nonspecific ST- T changes, echocardiogram was obtained for further evaluation. 09/01: Patient has undergone open reduction internal fixation today with Dr. Alexis. Hemoglobin dropped to 7.7 and patient is undergoing transfusion 2 units packed RBCs. Repeat CBC is ordered for after transfusion. Patient has been started on Coumadin protocol and Lovenox added to bridge patient. We will repeat chemistry will be added for tomorrow to monitor acute kidney injury. Urinalysis done this morning is showing turbid, blood small, leukoesterase large , RBCs 29, WBC greater than 182 and WBC clumps moderate. Urine culture was sent. Echocardiogram report is pending. Objective - Vital Signs Vital signs: Vital Signs Temp 97.8 F 09/01/17 07:30 Pulse 84 09/01/17 07:30 Resp 16 09/01/17 07:31 BP 156/70 09/01/17 07:30 Pulse Ox 96 09/01/17 07:30 Intake & Output 08/31/17 09/01/17 09/01/17 18:59 06:59 18:59 Intake Total 601 Balance 601 Intake: IV 601 Other: Voiding Method Incontinent Bedpan Bedpan # Voids 1 2 - Exam General appearance: average body habitus, no acute distress - Neck Neck: no lymphadenopathy, no rigidity, no stridor, no thyromegaly Carotids: bilateral: upstroke delayed Thyroid: bilateral: normal size - Respiratory Respiratory: bilateral: diminished, negative: dullness, rales, rhonchi, wheezing , prolonged expiration, prolonged inspiration - Cardiovascular Rhythm: regular Heart sounds: normal: S1, S2 Abnormal Heart Sounds: systolic murmur, no S3 Gallop, no S4 Gallop, no click - Gastrointestinal General gastrointestinal: normal bowel sounds, no rigid, no tenderness, no umbilical hernia, no ventral hernia - Integumentary Integumentary: normal, normal turgor - Neurologic Neurologic: CNII-XII intact, focal deficits - Musculoskeletal Musculoskeletal: generalized weakness, strength equal bilaterally - Psychiatric Psychiatric: no A&O x's 3, no appropriate affect, no intact judgment & insight - Labs CBC & Chem 7: 09/01/17 08:56 08/31/17 06:13 Labs: Abnormal Lab Results - Last 24 Hours (Table) 09/01/17 Range/Units 08:56 RBC 2.64 L (3.80-5.40) m/uL Hgb 7.7 L (11.4-16.0) gm/dL Hct 24.7 L (34.0-46.0) % Assessment and Plan Plan: 1. Status post fall with right distal femur fracture status post open reduction internal fixation. We will maintain patient on beta marlo in the form of metoprolol, and monitor her postoperative state with anticoagulation. 2. Acute kidney injury due to poor oral intake of fluid. IV fluid in the form of normal saline at 75 ml/ hour, repeat CMP magnesium tomorrow morning. 3. Acute blood loss anemia, transfusion 2 units packed RBCs. Recheck CBC this afternoon and in the morning. 4. Urinary tract infection. Rocephin started. Overweight urine culture report. 5. Hypertension and hypertensive cardiovascular disease. Continue metoprolol 100 mg orally once every day as well as lisinopril 10 mg orally once every day. 6. Hypothyroidism. Continue patient on Synthroid 175 g orally once every day. 7. Hyperlipidemia. Continue patient on Lipitor 10 mg orally once every day. 8. Atrial tachycardia. Continue patient on propafenone 150 mg orally 3 times every day. 9. Vascular dementia. Monitor patient for behavioral disturbances postoperatively. 10. Osteoarthritis. Continue current pain management. 11. Generalized anxiety disorder. Continue with sertraline 25 mg orally once every day. 12. ALLERGIC rhinitis. Continue loratadine 10 mg orally once every day. 13. Vitamin D deficiency. Continue vitamin D 50,000 units once every week. 14. DVT prophylaxis. Patient will be restarted Lovenox 30 mg subcutaneously every 12 hours postoperatively, along with Coumadin keep her INR between 2-3. 15. GI prophylaxis. Start the patient on Protonix 40 mg orally daily. 16. Osteoporosis. Patient will need to be started on prolia twice a year as an outpatient. 17. Patient is no CODE STATUS. Discharge plan: Subacute rehab Impression and plan of care have been directed as dictated by the signing physician. Faby Rosa nurse practitioner acting as scribe for signing physician.
[2017-09-01] MEDS: cefTRIAXone IN SWFI 1,000 MG/10 ML SYRINGE IVP SCH (13:14)
[2017-09-01] MEDS: ceFAZolin IN SWFI 2 GM/20 ML SYRINGE IVP SCH (16:39)
[2017-09-01 17:57] LABS: Basophils % (A) 0 %; Eosinophils % (A) 0 %; HCT 30.5 % (34.0-46.0); HGB 10.1 gm/dL (11.4-16.0); Lymphocytes # (A) 0.8 k/uL (1.0-4.8); Lymphocytes % (A) 8 %; MCH 29.4 pg (25.0-35.0); MCV 89.1 fL (80.0-100.0); Mean Platelet Volume 6.9; Monocytes # (A) 0.6 k/uL (0-1.0); Monocytes % (A) 7 %; Neutrophils # (A) 7.6 k/uL (1.3-7.7); Neutrophils % (A) 82 %; Platelet Count 171 k/uL (150-450); RBC 3.42 m/uL (3.80-5.40); RDW 15.1 % (11.5-15.5); WBC 9.2 k/uL (3.8-10.6)
[2017-09-01] MEDS ORDERED: WARFARIN 2.5 MG TAB PO ONE (18:00)
[2017-09-01] MEDS: ATORVASTATIN 20 MG TAB PO SCH (21:08)
[2017-09-01] MEDS: SENNOSIDES-DOCUSATE SODIUM 1 EACH TAB PO SCH (21:11)
[2017-09-02] MEDS: ceFAZolin IN SWFI 2 GM/20 ML SYRINGE IVP SCH (01:58)
[2017-09-02 07:40] LABS: INR 1.3 (<1.2); Prothrombin Time 12.4 sec (9.0-12.0)
[2017-09-02] MEDS: SODIUM CHLORIDE 0.9% 1,000 ML IV SCH ×5 (08:06→17:43)
[2017-09-02] MEDS: LEVOTHYROXINE 75 MCG TAB PO SCH (08:09)
[2017-09-02] MEDS: LORATADINE 10 MG TAB PO SCH (08:10)
[2017-09-02] MEDS: ENOXAPARIN 30 MG/0.3 ML SYRINGE SQ SCH (08:10)
[2017-09-02] MEDS: PANTOPRAZOLE 40 MG TABLET PO SCH (08:10)
[2017-09-02] MEDS: LEVOTHYROXINE 100 MCG TAB PO SCH (08:10)
[2017-09-02] MEDS: LISINOPRIL 10 MG TAB PO SCH ×2 (08:10→21:42)
[2017-09-02] MEDS: METOPROLOL SUCCINATE (ER) 100 MG TAB.ER.24H PO SCH (08:10)
[2017-09-02] MEDS: ALPRAZolam 0.25 MG TAB PO SCH ×3 (08:10→21:42)
[2017-09-02] MEDS: PROPAFENONE 150 MG TAB PO SCH ×3 (08:10→21:42)
[2017-09-02] MEDS: cefTRIAXone IN SWFI 1,000 MG/10 ML SYRINGE IVP SCH (08:17)
--- NOTE | 2017-09-02 08:46 | ECHOF ---
Referral Reason:LVF MEASUREMENTS -------- HEIGHT: 172.7 cm WEIGHT: 74.4 kg BP: IVSd: 0.9 cm (0.6 - 1.1) LVIDd: 3.8 cm (3.9 - 5.3) LVPWd: 1.0 cm (0.6 - 1.1) IVSs: 1.6 cm LVIDs: 1.5 cm LVPWs: 1.6 cm Ao Diam: 2.5 cm (2.0 - 3.7) AV Cusp: 1.8 cm (1.5 - 2.6) LA Diam: 3.3 cm (2.7 - 3.8) MV EXCURSION: 7.289 mm (> 18.000) MV EF SLOPE: 53 mm/s (70 - 150) EPSS: 0.6 cm MV E Erick: 0.71 m/s MV DecT: 208 ms MV A Erick: 0.78 m/s MV E/A Ratio: 0.91 RAP: 5.00 mmHg RVSP: 45.62 mmHg FINDINGS -------- Sinus rhythm. This was a technically adequate study. Pt. not compliant. The left ventricular size is normal. Left ventricular wall thickness is normal. Overall left vent ricular systolic function is normal with, an EF between 55 - 60 %. The right ventricle is normal in size and function. The left atrium is normal in size. The right atrium is normal in size. There is mild aortic valve sclerosis. Mild mitral annular calcification present. [id number] mitral regurgitation is present. Moderate to severe tricuspid regurgitation present. There is mild pulmonary hypertension. The rig ht ventricular systolic pressure, as measured by Doppler, is 45.62mmHg. The pulmonic valve was not well visualized. There is no pulmonic regurgitation present. The aortic root size is normal. There is no pericardial effusion. CONCLUSIONS -------- 1. Sinus rhythm. 2. This was a technically adequate study. 3. Pt. not compliant. 4. Left ventricular wall thickness is normal. 5. Overall left ventricular systolic function is normal with, an EF between 55 - 60 %. 6. The left atrium is normal in size. 7. There is mild aortic valve sclerosis. 8. Mild mitral annular calcification present. 9. Sgws-aq-pqvmzyul mitral regurgitation is present. 10. Moderate to severe tricuspid regurgitation present. 11. There is mild pulmonary hypertension. 12. There is no pulmonic regurgitation present. 13. The aortic root size is normal. 14. There is no pericardial effusion. DIRECTOR TALENT: Dahiana Milton RDCS
[2017-09-02] MEDS: SERTRALINE 25 MG TAB PO SCH (09:00)
--- NOTE | 2017-09-02 09:54 | P.PN ---
Subjective Progress Note Date: 09/02/17 This is an 87-year-old female who is status post ORIF of the right distal femur. This is postoperative day #1. Patient has a history of dementia. Patient does not remember that her right leg was injured or that she had surgery. Patient is lying comfortably in bed. No events overnight. Objective - Vital Signs Vital signs: Vital Signs Temp 98.3 F 09/02/17 07:15 Pulse 96 09/02/17 07:15 Resp 16 09/02/17 07:15 BP 144/67 09/02/17 07:15 Pulse Ox 96 09/02/17 07:15 Intake & Output 09/01/17 09/02/17 09/02/17 18:59 06:59 18:59 Intake Total 1921 Output Total 1750 350 Balance 171 -350 Intake: IV 1301 Blood Product 620 Rc As-1 Unit 310 [id number] Rc As-1 Unit 310 [id number] Output: Urine 1600 350 Uretheral (Maguire) 900 350 Estimated Blood Loss 150 Other: Voiding Method Indwelling Catheter Indwelling Catheter - Exam On exam patient is awake and in no acute distress. Surgical dressing is removed. Incision is clean, dry and intact. Surgical clips in place. No drainage. Calf is soft and nontender. Patient has full foot and ankle motion without difficulty or pain. Dorsalis pedis pulse 2+. Right foot is warm and well perfused. Neurovascular status and circulatory status are intact. - Labs CBC & Chem 7: 09/01/17 17:42 08/31/17 06:13 Labs: Abnormal Lab Results - Last 24 Hours (Table) 09/01/17 09/01/17 09/01/17 Range/Units 08:56 08:56 11:15 RBC 2.64 L (3.80-5.40) m/uL Hgb 7.7 L (11.4-16.0) gm/dL Hct 24.7 L (34.0-46.0) % Lymphocytes # (1.0-4.8) k/uL PT (9.0-12.0) sec INR (<1.2) Urine Appearance Turbid H (Clear) Urine Protein Trace H (Negative) Urine Blood Small H (Negative) Ur Leukocyte Esterase Large H (Negative) Urine RBC 29 H (0-5) /hpf Urine WBC >182 H (0-5) /hpf Urine WBC Clumps Moderate H (None) /hpf Crossmatch See Detail 09/01/17 09/02/17 Range/Units 17:42 06:43 RBC 3.42 L (3.80-5.40) m/uL Hgb 10.1 L (11.4-16.0) gm/dL Hct 30.5 L (34.0-46.0) % Lymphocytes # 0.8 L (1.0-4.8) k/uL PT 12.4 H (9.0-12.0) sec INR 1.3 H (<1.2) Urine Appearance (Clear) Urine Protein (Negative) Urine Blood (Negative) Ur Leukocyte Esterase (Negative) Urine RBC (0-5) /hpf Urine WBC (0-5) /hpf Urine WBC Clumps (None) /hpf Crossmatch Microbiology - Last 24 Hours (Table) 09/01/17 11:15 Urine Culture - Preliminary Urine,Catheterized Assessment and Plan (1) Closed fracture of right distal femur Current Visit: Yes Status: Acute Code(s): S72.401A - UNSP FRACTURE OF LOWER END OF RIGHT FEMUR, INIT FOR CLOS FX SNOMED Code(s): 741992181 (2) Fall Current Visit: Yes Status: Acute Code(s): W19.XXXA - UNSPECIFIED FALL, INITIAL ENCOUNTER SNOMED Code(s): 3531425 Plan: #1. Nonweightbearing to the right lower extremity. #2. Daily Dressing changes #2. Continue pain control #4. Continue anticoagulation #5. We'll continue to follow the patient closely.
[2017-09-02] MEDS: MULTIVITAMINS, THERA 1 EACH TAB PO SCH (11:53)
--- NOTE | 2017-09-02 14:39 | P.PN ---
Subjective Progress Note Date: 09/02/17 This is an 87-year-old female patient of Dr. Garrett with past medical history of dementia, hypertension, hyperlipidemia, supraventricular tachycardia , generalized osteoarthritis, hypothyroidism, patient was in her assisted living where she was trying to go to the bathroom and she fell and landed on the right side she sustained a distal right femur fracture for which she was evaluated in the emergency department and admitted under orthopedic surgery and we were consulted for preoperative medical clearance. Patient is very poor historian she has significant dementia and she does not remember what happened, most information was gathered from the chart as the patient lives in [facility] living [facility], where the fall happened and the patient was shipped to the ER at [facility] because of that and she was found to have a right distal femur fracture. Patient scheduled to go for ORIF of the right femur tomorrow morning. I reviewed her 12-lead EKG that showed normal sinus rhythm with nonspecific ST- T changes, echocardiogram was obtained for further evaluation. 09/01: Patient has undergone open reduction internal fixation today with Dr. Alexis. Hemoglobin dropped to 7.7 and patient is undergoing transfusion 2 units packed RBCs. Repeat CBC is ordered for after transfusion. Patient has been started on Coumadin protocol and Lovenox added to bridge patient. We will repeat chemistry will be added for tomorrow to monitor acute kidney injury. Urinalysis done this morning is showing turbid, blood small, leukoesterase large , RBCs 29, WBC greater than 182 and WBC clumps moderate. Urine culture was sent. Echocardiogram report is pending. 09/02: Repeat hemoglobin is 10.1. A shunt has been afebrile. INR is at 1.3. Patient is scheduled to receive 5 mg of Coumadin tonight. A shunt appears to be comfortable. Social work is working with family for discharge plan. Objective - Vital Signs Vital signs: Vital Signs Temp 98.3 F 09/02/17 07:15 Pulse 96 09/02/17 07:15 Resp 16 09/02/17 08:00 BP 144/67 09/02/17 07:15 Pulse Ox 96 09/02/17 07:15 Intake & Output 09/01/17 09/02/17 09/02/17 18:59 06:59 18:59 Intake Total 1921 Output Total 1750 350 Balance 171 -350 Intake: IV 1301 Blood Product 620 Rc As-1 Unit 310 [id number] Rc As-1 Unit 310 [id number] Output: Urine 1600 350 Uretheral (Maguire) 900 350 Estimated Blood Loss 150 Other: Voiding Method Indwelling Catheter Indwelling Catheter Indwelling Catheter - Labs CBC & Chem 7: 09/01/17 17:42 08/31/17 06:13 Labs: Abnormal Lab Results - Last 24 Hours (Table) 09/01/17 09/01/17 09/01/17 Range/Units 08:56 11:15 17:42 RBC 3.42 L (3.80-5.40) m/uL Hgb 10.1 L (11.4-16.0) gm/dL Hct 30.5 L (34.0-46.0) % Lymphocytes # 0.8 L (1.0-4.8) k/uL PT (9.0-12.0) sec INR (<1.2) Urine Appearance Turbid H (Clear) Urine Protein Trace H (Negative) Urine Blood Small H (Negative) Ur Leukocyte Esterase Large H (Negative) Urine RBC 29 H (0-5) /hpf Urine WBC >182 H (0-5) /hpf Urine WBC Clumps Moderate H (None) /hpf Crossmatch See Detail 09/02/17 Range/Units 06:43 RBC (3.80-5.40) m/uL Hgb (11.4-16.0) gm/dL Hct (34.0-46.0) % Lymphocytes # (1.0-4.8) k/uL PT 12.4 H (9.0-12.0) sec INR 1.3 H (<1.2) Urine Appearance (Clear) Urine Protein (Negative) Urine Blood (Negative) Ur Leukocyte Esterase (Negative) Urine RBC (0-5) /hpf Urine WBC (0-5) /hpf Urine WBC Clumps (None) /hpf Crossmatch Microbiology - Last 24 Hours (Table) 09/01/17 11:15 Urine Culture - Preliminary Urine,Catheterized
[2017-09-02] MEDS: WARFARIN 5 MG TAB PO SCH (17:40)
[2017-09-02] MEDS: SENNOSIDES-DOCUSATE SODIUM 1 EACH TAB PO SCH (21:42)
[2017-09-02] MEDS: ATORVASTATIN 20 MG TAB PO SCH (21:42)
[2017-09-03 07:15] LABS: Basophils % (A) 0 %; Eosinophils # (A) 0.1 k/uL (0-0.7); Eosinophils % (A) 1 %; HCT 26.7 % (34.0-46.0); Lymphocytes # (A) 0.9 k/uL (1.0-4.8); Lymphocytes % (A) 10 %; MCHC 32.3 g/dL (31.0-37.0); MCV 89.7 fL (80.0-100.0); Mean Platelet Volume 7.2; Monocytes # (A) 0.6 k/uL (0-1.0); Monocytes % (A) 7 %; Neutrophils # (A) 6.7 k/uL (1.3-7.7); Neutrophils % (A) 79 %; Platelet Count 184 k/uL (150-450); RBC 2.97 m/uL (3.80-5.40); RDW 15.2 % (11.5-15.5); WBC 8.4 k/uL (3.8-10.6)
[2017-09-03 07:20] LABS: HGB 8.6 gm/dL (11.4-16.0)
[2017-09-03] MEDS: PROPAFENONE 150 MG TAB PO SCH ×3 (09:38→22:06)
[2017-09-03] MEDS: LISINOPRIL 10 MG TAB PO SCH ×2 (09:39→20:27)
[2017-09-03] MEDS: ENOXAPARIN 30 MG/0.3 ML SYRINGE SQ SCH (09:39)
[2017-09-03] MEDS: MULTIVITAMINS, THERA 1 EACH TAB PO SCH (09:39)
[2017-09-03] MEDS: LEVOTHYROXINE 75 MCG TAB PO SCH (09:39)
[2017-09-03] MEDS: METOPROLOL SUCCINATE (ER) 100 MG TAB.ER.24H PO SCH (09:40)
[2017-09-03] MEDS: LEVOTHYROXINE 100 MCG TAB PO SCH (09:40)
[2017-09-03] MEDS: PANTOPRAZOLE 40 MG TABLET PO SCH (09:40)
[2017-09-03] MEDS: LORATADINE 10 MG TAB PO SCH (09:40)
[2017-09-03] MEDS: SERTRALINE 25 MG TAB PO SCH (09:40)
[2017-09-03] MEDS: ALPRAZolam 0.25 MG TAB PO SCH ×3 (12:18→22:06)
[2017-09-03] MEDS: cefTRIAXone IN SWFI 1,000 MG/10 ML SYRINGE IVP SCH (12:19)
[2017-09-03 12:27] LABS: INR 1.9 (<1.2); Prothrombin Time 17.5 sec (9.0-12.0)
[2017-09-03] MEDS: SODIUM CHLORIDE 0.9% 1,000 ML IV SCH (12:44)
--- NOTE | 2017-09-03 15:17 | P.PN ---
Subjective Progress Note Date: 09/03/17 This is an 87-year-old female patient of Dr. Garrett with past medical history of dementia, hypertension, hyperlipidemia, supraventricular tachycardia , generalized osteoarthritis, hypothyroidism, patient was in her assisted living where she was trying to go to the bathroom and she fell and landed on the right side she sustained a distal right femur fracture for which she was evaluated in the emergency department and admitted under orthopedic surgery and we were consulted for preoperative medical clearance. Patient is very poor historian she has significant dementia and she does not remember what happened, most information was gathered from the chart as the patient lives in [facility] living [facility], where the fall happened and the patient was shipped to the ER at [facility] because of that and she was found to have a right distal femur fracture. Patient scheduled to go for ORIF of the right femur tomorrow morning. I reviewed her 12-lead EKG that showed normal sinus rhythm with nonspecific ST- T changes, echocardiogram was obtained for further evaluation. 09/01: Patient has undergone open reduction internal fixation today with Dr. Alexis. Hemoglobin dropped to 7.7 and patient is undergoing transfusion 2 units packed RBCs. Repeat CBC is ordered for after transfusion. Patient has been started on Coumadin protocol and Lovenox added to bridge patient. We will repeat chemistry will be added for tomorrow to monitor acute kidney injury. Urinalysis done this morning is showing turbid, blood small, leukoesterase large , RBCs 29, WBC greater than 182 and WBC clumps moderate. Urine culture was sent. Echocardiogram report is pending. 09/02: Repeat hemoglobin is 10.1. A shunt has been afebrile. INR is at 1.3. Patient is scheduled to receive 5 mg of Coumadin tonight. A shunt appears to be comfortable. Social work is working with family for discharge plan. 09/03: She has had a drop in her hemoglobin to 8.6. INR is 1.9. He is scheduled for Coumadin 5 mg tonight. Maguire catheter to be removed today. Urine culture was positive for Enterococcus faecalis. Antibiotics will be changed over to oral Levaquin. Anticipate discharge to [facility] or [facility] tomorrow. Objective - Vital Signs Vital signs: Vital Signs Temp 98.3 F 09/03/17 02:26 Pulse 79 09/03/17 02:26 Resp 17 09/03/17 02:26 BP 156/76 09/03/17 02:26 Pulse Ox 98 09/03/17 02:26 Intake & Output 09/02/17 09/03/17 09/03/17 18:59 06:59 18:59 Intake Total 600 Output Total 540 Balance 600 -540 Intake: IV 600 Sodium Chloride 0.9% 1, 600 000 ml @ 75 mls/hr IV . [id number] [facility] Rx#:[id number] Output: Urine 540 Uretheral (Maguire) 340 Other: Voiding Method Indwelling Catheter Indwelling Catheter - Exam General appearance: average body habitus, no acute distress - Neck Neck: no lymphadenopathy, no rigidity, no stridor, no thyromegaly Carotids: bilateral: upstroke delayed Thyroid: bilateral: normal size - Respiratory Respiratory: bilateral: diminished, negative: dullness, rales, rhonchi, wheezing , prolonged expiration, prolonged inspiration - Cardiovascular Rhythm: regular Heart sounds: normal: S1, S2 Abnormal Heart Sounds: systolic murmur, no S3 Gallop, no S4 Gallop, no click - Gastrointestinal General gastrointestinal: normal bowel sounds, no rigid, no tenderness, no umbilical hernia, no ventral hernia - Integumentary Integumentary: normal, normal turgor - Neurologic Neurologic: CNII-XII intact, focal deficits - Musculoskeletal Musculoskeletal: generalized weakness, strength equal bilaterally - Psychiatric Psychiatric: no A&O x's 3, no appropriate affect, no intact judgment & insight - Labs CBC & Chem 7: 09/03/17 06:10 08/31/17 06:13 Labs: Abnormal Lab Results - Last 24 Hours (Table) 09/03/17 Range/Units 06:10 RBC 2.97 L (3.80-5.40) m/uL Hgb 8.6 L D (11.4-16.0) gm/dL Hct 26.7 L (34.0-46.0) % Lymphocytes # 0.9 L (1.0-4.8) k/uL Assessment and Plan Plan: 1. Status post fall with right distal femur fracture status post open reduction internal fixation. We will maintain patient on beta marlo in the form of metoprolol, and monitor her postoperative state with anticoagulation. 2. Acute kidney injury due to poor oral intake of fluid. IV fluid in the form of normal saline at 75 ml/ hour, repeat CMP magnesium tomorrow morning. 3. Acute blood loss anemia, transfusion 2 units packed RBCs. Recheck CBC in the morning. 4. Enterococcus urinary tract infection. Rocephin changed to Levaquin. 5. Hypertension and hypertensive cardiovascular disease. Continue metoprolol 100 mg orally once every day as well as lisinopril 10 mg orally once every day. 6. Hypothyroidism. Continue patient on Synthroid 175 g orally once every day. 7. Hyperlipidemia. Continue patient on Lipitor 10 mg orally once every day. 8. Atrial tachycardia. Continue patient on propafenone 150 mg orally 3 times every day. 9. Vascular dementia. Monitor patient for behavioral disturbances postoperatively. 10. Osteoarthritis. Continue current pain management. 11. Generalized anxiety disorder. Continue with sertraline 25 mg orally once every day. 12. ALLERGIC rhinitis. Continue loratadine 10 mg orally once every day. 13. Vitamin D deficiency. Continue vitamin D 50,000 units once every week. 14. DVT prophylaxis. Patient will be restarted Lovenox 30 mg subcutaneously every 12 hours postoperatively, along with Coumadin keep her INR between 2-3. 15. GI prophylaxis. Start the patient on Protonix 40 mg orally daily. 16. Osteoporosis. Patient will need to be started on prolia twice a year as an outpatient. 17. Patient is no CODE STATUS. Discharge plan: Subacute rehab tomorrow Impression and plan of care have been directed as dictated by the signing physician. Faby Rosa nurse practitioner acting as scribe for signing physician.
--- NOTE | 2017-09-03 15:22 | P.DS ---
Providers Date of admission: 08/30/17 20:51 Expected date of discharge: 09/03/17 Attending physician: Castro Alexis Consults: 08/31/17 08:50 Consult Physician Routine Consulting Provider: Gabriela Rosen Consult Reason/Comments: Medical Management Do you want consulting provider notified?: Already Contacted Primary care physician: Solomon Garrett - Discharge Diagnosis(es) (1) Closed fracture of right distal femur Current Visit: Yes Status: Acute (2) Fall Current Visit: Yes Status: Acute Hospital Course: This is a 87-year-old female who sustained a right distal femur fracture after a fall. The patient presents for evaluation. After discussion and consideration patient and family elects to proceed with ORIF right distal femur. The patient is seen preoperatively by Dr. Alexis and cleared for surgery. Patient is admitted to [facility] on 08/30/2017 and ORIF of right distal femur was performed on 09/01/2017. The procedures performed without complication or sequelae. The patient is doing well postoperatively. Labs and vital signs are stable on day of discharge. On day of discharge patient's incision is healing well. There is minimal erythema. There is no drainage noted at this time. There is minimal soft tissue swelling to the knee. Patient has full foot and ankle motion without difficulty or pain. Neurovascular status to the right lower extremity is intact. Patient is discharged to rehab in good condition. Please see med rec for accurate list of home medications. Patient Condition at Discharge: Good Plan - Discharge Summary Discharge Rx Participant: No New Discharge Prescriptions: New Acetaminophen [Acetaminophen ER] 650 mg PO Q6HR PRN #90 tablet.er PRN Reason: Pain Sennosides [Senokot] 1 tab PO BID #60 tablet No Action Lisinopril [Zestril] 10 mg PO BID@0800,2000 Propafenone HCl [Propafenone HCl ER] 225 mg PO BID@0800,2000 Hydrochlorothiazide [Hydrodiuril] 25 mg PO DAILY@2000 Furosemide [Lasix] 20 mg PO BID@0800,1400 Docusate [Colace] 100 mg PO BID@0800,2000 Aspirin 81 mg PO DAILY@2000 Simvastatin [Zocor] 40 mg PO DAILY@2000 Ergocalciferol [Vitamin D2 (DRISDOL)] 50,000 unit PO Q14D Multivitamin/Iron/Folic Acid [Centrum Complete Multivit Tab] 1 tab PO DAILY@ 1999 Cranberry Fruit Concentrate [Azo Cranberry] 250 mg PO DAILY@1999 Levothyroxine Sodium [Synthroid] 175 mcg PO DAILY Metoprolol Succinate [Toprol XL] 100 mg PO DAILY@0800 Sertraline HCl [Zoloft] 25 mg PO DAILY@1999 Vit C/E/Zn/Coppr/Lutein/Zeaxan [Preservision Areds 2 Softgel] 2 cap PO DAILY@ 1999 ALPRAZolam [Xanax] 0.25 mg PO TID@0800,1400,1999 Ensure 0.5 can PO BID Loratadine [Claritin] 10 mg PO DAILY Omeprazole 20 mg PO DAILY Potassium Chloride ER [K-Dur 20] 10 meq PO DAILY Discharge Medication List Aspirin 81 mg PO DAILY@199902/15/14 [History] Docusate [Colace] 100 mg PO BID@0800,199902/15/14 [History] Ergocalciferol [Vitamin D2 (DRISDOL)] 50,000 unit PO Q14D 02/15/14 [History] Furosemide [Lasix] 20 mg PO BID@0800,1400 02/15/14 [History] Hydrochlorothiazide [Hydrodiuril] 25 mg PO DAILY@199902/15/14 [History] Lisinopril [Zestril] 10 mg PO BID@0800,199902/15/14 [History] Multivitamin/Iron/Folic Acid [Centrum Complete Multivit Tab] 1 tab PO DAILY@ 199902/15/14 [History] Propafenone HCl [Propafenone HCl ER] 225 mg PO BID@0800,199902/15/14 [History] Simvastatin [Zocor] 40 mg PO DAILY@199902/15/14 [History] Cranberry Fruit Concentrate [Azo Cranberry] 250 mg PO DAILY@199906/16/17 [ History] Levothyroxine Sodium [Synthroid] 175 mcg PO DAILY 06/16/17 [History] Metoprolol Succinate [Toprol XL] 100 mg PO DAILY@0800 06/16/17 [History] Sertraline HCl [Zoloft] 25 mg PO DAILY@199906/16/17 [History] Vit C/E/Zn/Coppr/Lutein/Zeaxan [Preservision Areds 2 Softgel] 2 cap PO DAILY@ 199906/16/17 [History] ALPRAZolam [Xanax] 0.25 mg PO TID@0800,1400,199908/11/17 [History] Ensure 0.5 can PO BID 08/11/17 [History] Loratadine [Claritin] 10 mg PO DAILY 08/11/17 [History] Omeprazole 20 mg PO DAILY 08/11/17 [History] Potassium Chloride ER [K-Dur 20] 10 meq PO DAILY 08/11/17 [History] Acetaminophen [Acetaminophen ER] 650 mg PO Q6HR PRN #90 tablet.er 09/03/17 [Rx] Sennosides [Senokot] 1 tab PO BID #60 tablet 09/03/17 [Rx] Follow up Appointment(s)/Referral(s): Solomon Garrett MD [Primary Care Provider] - 1-2 days Sis Zayas, [NON-STAFF] - As Needed Castor Alexis DO [Doctor of Osteopathic Medicine] - 10 Days Activity/Diet/Wound Care/Special Instructions: Nonweightbearing to the right lower extremity Daily dressing changes Rest, ice and elevate the right lower extremity Please take medications as prescribed. [facility]10 [facility]. Please call with any questions or concerns, Discharge Disposition: TRANSFER TO SNF/ECF
[2017-09-03] MEDS: ATORVASTATIN 20 MG TAB PO SCH (20:27)
[2017-09-03] MEDS: WARFARIN 5 MG TAB PO SCH (20:28)
[2017-09-03] MEDS: SENNOSIDES-DOCUSATE SODIUM 1 EACH TAB PO SCH (20:28)
[2017-09-04] MEDS: LEVOTHYROXINE 75 MCG TAB PO SCH (06:20)
[2017-09-04] MEDS: LEVOTHYROXINE 100 MCG TAB PO SCH (06:20)
[2017-09-04 06:46] LABS: HGB 8.9 gm/dL (11.4-16.0); Hypochromasia Slight; MCH 28.6 pg (25.0-35.0); MCHC 31.8 g/dL (31.0-37.0); MCV 89.8 fL (80.0-100.0); Mean Platelet Volume 7.9; Platelet Count 239 k/uL (150-450); RBC 3.12 m/uL (3.80-5.40); RDW 15.8 % (11.5-15.5); WBC 8.8 k/uL (3.8-10.6)
[2017-09-04 06:48] LABS: INR 4.7 (<1.2); Prothrombin Time 41.9 sec (9.0-12.0)
[2017-09-04 06:56] LABS: ALT 36 U/L (9-52); AST 52 U/L (14-36); Albumin 2.6 g/dL (3.5-5.0); Alkaline Phosphatase 115 U/L (38-126); Anion Gap 12 mmol/L; Blood Urea Nitrogen 23 mg/dL (7-17); Calcium 8.1 mg/dL (8.4-10.2); Carbon Dioxide 24 mmol/L (22-30); Chloride 110 mmol/L (98-107); Glucose 135 mg/dL (74-99); Sodium 146 mmol/L (137-145); Total Bilirubin 0.5 mg/dL (0.2-1.3); Total Protein 5.3 g/dL (6.3-8.2)
[2017-09-04] MEDS: SERTRALINE 25 MG TAB PO SCH (07:58)
[2017-09-04] MEDS: PANTOPRAZOLE 40 MG TABLET PO SCH (07:58)
[2017-09-04] MEDS: MULTIVITAMINS, THERA 1 EACH TAB PO SCH (07:58)
[2017-09-04] MEDS: METOPROLOL SUCCINATE (ER) 100 MG TAB.ER.24H PO SCH (07:58)
[2017-09-04] MEDS: LORATADINE 10 MG TAB PO SCH (07:58)
[2017-09-04] MEDS: LISINOPRIL 10 MG TAB PO SCH ×2 (07:58→21:01)
[2017-09-04] MEDS: PROPAFENONE 150 MG TAB PO SCH ×3 (07:59→21:01)
[2017-09-04] MEDS: ENOXAPARIN 30 MG/0.3 ML SYRINGE SQ SCH (07:59)
[2017-09-04] MEDS ORDERED: POTASSIUM CHLORIDE 20 MEQ in WATER FOR INJECTION 1 100ML.BAG IVPB SCH (08:00)
[2017-09-04] MEDS: POTASSIUM CHLORIDE ER 20 MEQ TAB.ER PO SCH ×2 (09:12→11:19)
--- NOTE | 2017-09-04 09:17 | P.PN ---
Subjective Progress Note Date: 09/04/17 This is an 87-year-old female who is status post ORIF of the right distal femur. This is postoperative day #3. Patient has a history of dementia. Patient does not remember that her right leg was injured or that she had surgery. Patient is lying comfortably in bed. Patient's discharge was postponed due to atrial fibrillation. Objective - Vital Signs Vital signs: Vital Signs Temp 97.5 F L 09/04/17 01:00 Pulse 85 09/04/17 01:00 Resp 16 09/04/17 01:00 BP 120/68 09/04/17 01:00 Pulse Ox 98 09/04/17 01:00 Intake & Output 09/03/17 09/04/17 09/04/17 18:59 06:59 18:59 Intake Total 150 480 Output Total 100 Balance 150 380 Weight 74.389 kg Intake: IV 150 Sodium Chloride 0.9% 1, 150 000 ml @ 75 mls/hr IV . [id number] [facility] Rx#:[id number] Oral 480 Output: Urine 100 Uretheral (Maguire) 100 Other: Voiding Method Indwelling Catheter # Bowel Movements 1 - Exam On exam patient is awake and in no acute distress. Incision's are clean, dry and intact. Surgical clips in place. No drainage. Calf is soft and nontender. Patient has full foot and ankle motion without difficulty or pain. Dorsalis pedis pulse 2+. Right foot is warm and well perfused. Neurovascular status and circulatory status are intact. - Labs CBC & Chem 7: 09/04/17 06:24 09/04/17 06:24 Labs: Abnormal Lab Results - Last 24 Hours (Table) 09/03/17 09/04/17 09/04/17 Range/Units 06:10 06:24 06:24 RBC 3.12 L (3.80-5.40) m/uL Hgb 8.9 L (11.4-16.0) gm/dL Hct 28.0 L (34.0-46.0) % RDW 15.8 H (11.5-15.5) % PT 17.5 H 41.9 H (9.0-12.0) sec INR 1.9 H 4.7 H (<1.2) Sodium (137-145) mmol/L Potassium (3.5-5.1) mmol/L Chloride (98-107) mmol/L BUN (7-17) mg/dL Glucose (74-99) mg/dL Calcium (8.4-10.2) mg/dL AST (14-36) U/L Total Protein (6.3-8.2) g/dL Albumin (3.5-5.0) g/dL 09/04/17 Range/Units 06:24 RBC (3.80-5.40) m/uL Hgb (11.4-16.0) gm/dL Hct (34.0-46.0) % RDW (11.5-15.5) % PT (9.0-12.0) sec INR (<1.2) Sodium 146 H (137-145) mmol/L Potassium 3.0 L* (3.5-5.1) mmol/L Chloride 110 H (98-107) mmol/L BUN 23 H (7-17) mg/dL Glucose 135 H (74-99) mg/dL Calcium 8.1 L (8.4-10.2) mg/dL AST 52 H (14-36) U/L Total Protein 5.3 L (6.3-8.2) g/dL Albumin 2.6 L (3.5-5.0) g/dL Microbiology - Last 24 Hours (Table) 09/01/17 11:15 Urine Culture - Final Urine,Catheterized Enterococcus faecalis Assessment and Plan (1) Closed fracture of right distal femur Current Visit: Yes Status: Acute Code(s): S72.401A - UNSP FRACTURE OF LOWER END OF RIGHT FEMUR, INIT FOR CLOS FX SNOMED Code(s): 501632682 (2) Fall Current Visit: Yes Status: Acute Code(s): W19.XXXA - UNSPECIFIED FALL, INITIAL ENCOUNTER SNOMED Code(s): 6942966 Plan: #1. Nonweightbearing to the right lower extremity. #2. Daily Dressing changes along with heel protectors #2. Continue pain control #4. Continue anticoagulation per medicine #5. We'll continue to follow the patient closely.
[2017-09-04 11:07] LABS: Glucose,Whole Blood 130 mg/dL (75-99)
[2017-09-04] MEDS: ALPRAZolam 0.25 MG TAB PO SCH ×3 (11:19→21:03)
[2017-09-04] MEDS: POTASSIUM CHLORIDE 20 MEQ in SODIUM CHLORIDE 0.9% 100 ML IVPB SCH ×2 (11:19→14:27)
[2017-09-04] MEDS: cefTRIAXone IN SWFI 1,000 MG/10 ML SYRINGE IVP SCH (11:42)
--- NOTE | 2017-09-04 13:07 | P.PN ---
Subjective Progress Note Date: 09/04/17 This is an 87-year-old female patient of Dr. Garrett with past medical history of dementia, hypertension, hyperlipidemia, supraventricular tachycardia , generalized osteoarthritis, hypothyroidism, patient was in her assisted living where she was trying to go to the bathroom and she fell and landed on the right side she sustained a distal right femur fracture for which she was evaluated in the emergency department and admitted under orthopedic surgery and we were consulted for preoperative medical clearance. Patient is very poor historian she has significant dementia and she does not remember what happened, most information was gathered from the chart as the patient lives in [facility], where the fall happened and the patient was shipped to the ER at [facility] because of that and she was found to have a right distal femur fracture. Patient scheduled to go for ORIF of the right femur tomorrow morning. I reviewed her 12-lead EKG that showed normal sinus rhythm with nonspecific ST- T changes, echocardiogram was obtained for further evaluation. 09/01: Patient has undergone open reduction internal fixation today with Dr. Alexis. Hemoglobin dropped to 7.7 and patient is undergoing transfusion 2 units packed RBCs. Repeat CBC is ordered for after transfusion. Patient has been started on Coumadin protocol and Lovenox added to bridge patient. We will repeat chemistry will be added for tomorrow to monitor acute kidney injury. Urinalysis done this morning is showing turbid, blood small, leukoesterase large , RBCs 29, WBC greater than 182 and WBC clumps moderate. Urine culture was sent. Echocardiogram report is pending. 09/02: Repeat hemoglobin is 10.1. A shunt has been afebrile. INR is at 1.3. Patient is scheduled to receive 5 mg of Coumadin tonight. A shunt appears to be comfortable. Social work is working with family for discharge plan. 09/03: She has had a drop in her hemoglobin to 8.6. INR is 1.9. He is scheduled for Coumadin 5 mg tonight. Maguire catheter to be removed today. Urine culture was positive for Enterococcus faecalis. Antibiotics will be changed over to oral Levaquin. Anticipate discharge to [facility] or [facility] tomorrow. 09/04: Patient developed new onset of atrial fibrillation with rapid ventricular response and transferred to ICU as an overflow for selective care. Cardiology consult requested. Patient also developed profuse diarrhea for which fecal management system was placed and C. difficile toxin will be checked. Patient has significant non-stage decubitus ulcer from sitting on a bedpan for an extended period of time and blister to her left heel.. Patient subsequently converted to normal sinus rhythm. INR is 4.7 and Coumadin placed on hold. Potassium will be replaced. Objective - Vital Signs Vital signs: Vital Signs Temp 98.2 F 09/04/17 07:50 Pulse 145 H 09/04/17 09:00 Resp 16 09/04/17 07:50 BP 133/70 09/04/17 07:50 Pulse Ox 98 09/04/17 07:50 Intake & Output 09/03/17 09/04/17 09/04/17 18:59 06:59 18:59 Intake Total 150 480 Output Total 100 Balance 150 380 Weight 74.389 kg Intake: IV 150 Sodium Chloride 0.9% 1, 150 000 ml @ 75 mls/hr IV . [id number] [facility] Rx#:[id number] Oral 480 Output: Urine 100 Uretheral (Maguire) 100 Other: Voiding Method Indwelling Catheter # Bowel Movements 1 - Exam General appearance: average body habitus, no acute distress - Neck Neck: no lymphadenopathy, no rigidity, no stridor, no thyromegaly Carotids: bilateral: upstroke delayed Thyroid: bilateral: normal size - Respiratory Respiratory: bilateral: diminished, negative: dullness, rales, rhonchi, wheezing , prolonged expiration, prolonged inspiration - Cardiovascular Rhythm: regular Heart sounds: normal: S1, S2 Abnormal Heart Sounds: systolic murmur, no S3 Gallop, no S4 Gallop, no click - Gastrointestinal General gastrointestinal: normal bowel sounds, no rigid, no tenderness, no umbilical hernia, no ventral hernia - Integumentary Integumentary: normal, normal turgor - Neurologic Neurologic: CNII-XII intact, focal deficits - Musculoskeletal Musculoskeletal: generalized weakness, strength equal bilaterally - Psychiatric Psychiatric: no A&O x's 3, no appropriate affect, no intact judgment & insight - Labs CBC & Chem 7: 09/04/17 06:24 09/04/17 06:24 Labs: Abnormal Lab Results - Last 24 Hours (Table) 09/03/17 09/04/17 09/04/17 Range/Units 06:10 06:24 06:24 RBC 3.12 L (3.80-5.40) m/uL Hgb 8.9 L (11.4-16.0) gm/dL Hct 28.0 L (34.0-46.0) % RDW 15.8 H (11.5-15.5) % PT 17.5 H 41.9 H (9.0-12.0) sec INR 1.9 H 4.7 H (<1.2) Sodium (137-145) mmol/L Potassium (3.5-5.1) mmol/L Chloride (98-107) mmol/L BUN (7-17) mg/dL Glucose (74-99) mg/dL Calcium (8.4-10.2) mg/dL AST (14-36) U/L Total Protein (6.3-8.2) g/dL Albumin (3.5-5.0) g/dL 09/04/17 Range/Units 06:24 RBC (3.80-5.40) m/uL Hgb (11.4-16.0) gm/dL Hct (34.0-46.0) % RDW (11.5-15.5) % PT (9.0-12.0) sec INR (<1.2) Sodium 146 H (137-145) mmol/L Potassium 3.0 L* (3.5-5.1) mmol/L Chloride 110 H (98-107) mmol/L BUN 23 H (7-17) mg/dL Glucose 135 H (74-99) mg/dL Calcium 8.1 L (8.4-10.2) mg/dL AST 52 H (14-36) U/L Total Protein 5.3 L (6.3-8.2) g/dL Albumin 2.6 L (3.5-5.0) g/dL Microbiology - Last 24 Hours (Table) 09/01/17 11:15 Urine Culture - Final Urine,Catheterized Enterococcus faecalis Assessment and Plan Plan: 1. Status post fall with right distal femur fracture status post open reduction internal fixation. 2. Acute kidney injury due to poor oral intake of fluid. 3. Acute blood loss anemia, transfusion 2 units packed RBCs. Monitor hemoglobin 4. Enterococcus urinary tract infection. Rocephin changed to Augmentin. 5. Hypertension and hypertensive cardiovascular disease. Continue metoprolol 100 mg orally once every day as well as lisinopril 10 mg orally once every day. 6. Hypothyroidism. Continue patient on Synthroid 175 g orally once every day. 7. Hyperlipidemia. Continue patient on Lipitor 10 mg orally once every day. 8. Atrial tachycardia. Continue patient on propafenone 150 mg orally 3 times every day. 9. Vascular dementia. Monitor patient for behavioral disturbances postoperatively. 10. Osteoarthritis. Continue current pain management. 11. Generalized anxiety disorder. Continue with sertraline 25 mg orally once every day. 12. ALLERGIC rhinitis. Continue loratadine 10 mg orally once every day. 13. Vitamin D deficiency. Continue vitamin D 50,000 units once every week. 14. DVT prophylaxis. Lovenox discontinued, Coumadin keep her INR between 2- 3. Coumadin currently on hold due to elevated INR 15. GI prophylaxis. Start the patient on Protonix 40 mg orally daily. 16. Osteoporosis. Patient will need to be started on prolia twice a year as an outpatient. 17. New onset atrial fibrillation, probable paroxysmal atrial fibrillation. Patient is already on metoprolol and Rythmol. Cardiology consult. 18. Unstageable decubitus ulcer to the buttocks. Optive foam. 19. New onset diarrhea. C. difficile toxin to be checked. Patient has fecal management system in place. Patient is no CODE STATUS. Discharge plan: [facility] Impression and plan of care have been directed as dictated by the signing physician. Faby Rosa nurse practitioner acting as scribe for signing physician.
[2017-09-04] MEDS: AMOXIC-POT CLAV 500-125 MG 1 EACH TAB PO SCH ×2 (14:28→21:01)
--- NOTE | 2017-09-04 16:10 | CONS ---
CONSULTATION Mrs. Staples is an 87-year-old female with a known history of paroxysmal atrial fibrillation, history of dementia, hyperlipidemia, hypertension, who presented after a fall and fracture right femur. She underwent surgery and she was ready to go home. Today when she had an episode of rapid rate and atrial fibrillation. She is back in sinus mechanism at this time. The history is obtained through the daughter. The patient is awake, but confused. She is very limited in her physical activity. Has no chest pain. She has no syncope. She has been maintained on Propafenone but not anticoagulated in the past. She has no history of PND nor orthopnea. MEDICATION: Her medications at home included Toprol-XL 100 mg daily, aspirin, simvastatin 40 mg daily, Propafenone 225 mg twice a day, hydrochlorothiazide 25 mg daily, lisinopril 10 mg twice a day, potassium 10 mEq daily, Lasix 20 mg twice a day, omeprazole, loratadine, Xanax. REVIEW OF SYSTEMS: Quite limited, but the patient has no recent wheezing or cough. Her activity is limited as noted. GI system: No recent GI bleed. No peptic ulcer disease. system. She has no recent nausea or vomiting. No GI bleeding. system: No dysuria or hematuria. Nervous system: She has no seizure. During her hospital stay, she underwent an echocardiogram that showed a preserved systolic function with mild to moderate mitral, moderate severe tricuspid regurgitation. PHYSICAL EXAMINATION: She is an 87-year-old female, alert, confused, in no apparent distress. Blood pressure 133/70 with a heart rate in the 80s. HEAD: Normocephalic. Eyes sclerae anicteric. Neck good upstroke. No bruit. LUNGS: Clear to auscultation anteriorly. HEART: Regular rate and rhythm S1, S2. No S3 with systolic murmur. No diastolic murmur. No rub. ABDOMEN: Soft, nontender. Positive bowel sounds. No organomegaly. EXTREMITIES: No edema. LAB DATA: EKG reveals atrial fibrillation with nonspecific ST-T wave changes. Her potassium today is 3.0 and it was 3.9 on the 13th. Her BUN and creatinine 23 and 0.76. Her INR today is 4.7, hemoglobin of 8.9. IMPRESSION: 1. Paroxysmal atrial fibrillation. Patient is back in sinus mechanism. 2. History of recent fall and fracture. 3. History of hypertension. 4. Hyperlipidemia. RECOMMENDATION: From the cardiac standpoint, I will continue on the Propafenone. Her potassium is being replaced. She has been anticoagulated. No further cardiac workup is needed at this time. I would expect that she would be able to be transferred to the [facility] soon. Thank you for this consult. We will follow with you. MARIANNE / BREANNA: [id number] /
[2017-09-04 16:41] LABS: Magnesium 1.9 mg/dL (1.6-2.3); Potassium 3.5 mmol/L (3.5-5.1)
[2017-09-04] MEDS: POTASSIUM CHLORIDE 10 MEQ in SODIUM CHLORIDE 0.9% 100 ML IVPB SCH ×2 (19:11→20:17)
[2017-09-04] MEDS: SENNOSIDES-DOCUSATE SODIUM 1 EACH TAB PO SCH (20:18)
[2017-09-04] MEDS: ATORVASTATIN 20 MG TAB PO SCH (21:01)
[2017-09-05] MEDS: ALPRAZolam 0.25 MG TAB PO SCH ×4 (01:11→21:40)
[2017-09-05] MEDS: PROPAFENONE 150 MG TAB PO SCH ×4 (01:11→21:40)
[2017-09-05] MEDS: ATORVASTATIN 20 MG TAB PO SCH ×2 (01:11→21:40)
[2017-09-05] MEDS: AMOXIC-POT CLAV 500-125 MG 1 EACH TAB PO SCH ×3 (01:11→21:40)
[2017-09-05] MEDS: LISINOPRIL 10 MG TAB PO SCH ×3 (01:11→21:40)
[2017-09-05 04:51] LABS: Basophils % (A) 0 %; Eosinophils # (A) 0.1 k/uL (0-0.7); Eosinophils % (A) 2 %; HCT 26.7 % (34.0-46.0); HGB 8.3 gm/dL (11.4-16.0); Lymphocytes # (A) 0.8 k/uL (1.0-4.8); Lymphocytes % (A) 11 %; MCH 28.5 pg (25.0-35.0); MCHC 31.2 g/dL (31.0-37.0); MCV 91.3 fL (80.0-100.0); Mean Platelet Volume 7.3; Monocytes # (A) 0.5 k/uL (0-1.0); Monocytes % (A) 6 %; Neutrophils % (A) 78 %; Platelet Count 239 k/uL (150-450); RBC 2.92 m/uL (3.80-5.40); RDW 15.1 % (11.5-15.5); WBC 7.7 k/uL (3.8-10.6)
[2017-09-05 05:01] LABS: Prothrombin Time 80.1 sec (9.0-12.0)
[2017-09-05 05:09] LABS: Anion Gap 6 mmol/L; Blood Urea Nitrogen 23 mg/dL (7-17); Calcium 8.2 mg/dL (8.4-10.2); Carbon Dioxide 25 mmol/L (22-30); Chloride 117 mmol/L (98-107); Glucose 125 mg/dL (74-99); Potassium 3.7 mmol/L (3.5-5.1); Sodium 148 mmol/L (137-145)
[2017-09-05 05:12] LABS: INR 8.6 (<1.2)
[2017-09-05] MEDS ORDERED: Potassium Replacement Protocol 1 EACH MISC MISCELLANE PRN (05:27)
[2017-09-05] MEDS ORDERED: PHYTONADIONE ORAL 5 MG/5 ML ORAL.SYRG PO STA (05:31)
[2017-09-05] MEDS: POTASSIUM CHLORIDE 10 MEQ in WATER FOR INJECTION 1 100ML.BAG IVPB SCH ×2 (06:06→07:11)
[2017-09-05] MEDS: LEVOTHYROXINE 100 MCG TAB PO SCH (06:07)
[2017-09-05] MEDS: LEVOTHYROXINE 75 MCG TAB PO SCH (06:07)
[2017-09-05] MEDS: PANTOPRAZOLE 40 MG TABLET PO SCH (08:17)
[2017-09-05] MEDS: METOPROLOL SUCCINATE (ER) 100 MG TAB.ER.24H PO SCH (08:17)
[2017-09-05] MEDS: LORATADINE 10 MG TAB PO SCH (08:17)
[2017-09-05] MEDS: SERTRALINE 25 MG TAB PO SCH (08:18)
--- NOTE | 2017-09-05 08:43 | P.PN ---
Subjective Progress Note Date: 09/05/17 This is an 87-year-old female who is status post ORIF of the right distal femur. This is postoperative day #4. Patient has a history of dementia. Patient does not remember that her right leg was injured or that she had surgery. Patient is lying comfortably in bed. Patient denies any new complaints today. Objective - Vital Signs Vital signs: Vital Signs Temp 98.0 F 09/05/17 02:00 Pulse 80 09/05/17 06:00 Resp 24 09/05/17 06:00 BP 139/104 09/05/17 06:00 Pulse Ox 98 09/05/17 06:00 Intake & Output 09/04/17 09/05/17 09/05/17 18:59 06:59 18:59 Intake Total 580 120 Output Total 550 Balance 580 -430 Weight 74.389 kg Intake: Intake, IV Titration 100 100 Amount Potassium Chloride 10 meq 100 In Water For Injection 1 100ml.bag @ 100 mls/hr IVPB Q1H [facility] Rx#: [id number] Potassium Chloride 20 meq 100 In Water For Injection 1 100ml.bag @ 50 mls/hr IVPB Q2HR [facility] Rx#: [id number] Oral 480 20 Output: Stool 550 Other: Voiding Method Indwelling Catheter # Voids 1 1 - Exam On exam patient is awake and in no acute distress. Incision's are clean, dry and intact. Surgical clips in place. No drainage. Calf is soft and nontender. Patient has full foot and ankle motion without difficulty or pain. Dorsalis pedis pulse 2+. Right foot is warm and well perfused. Neurovascular status and circulatory status are intact. - Labs CBC & Chem 7: 09/05/17 04:39 09/05/17 04:39 Labs: Abnormal Lab Results - Last 24 Hours (Table) 09/04/17 09/05/17 09/05/17 Range/Units 11:05 04:39 04:39 RBC (3.80-5.40) m/uL Hgb (11.4-16.0) gm/dL Hct (34.0-46.0) % Lymphocytes # (1.0-4.8) k/uL PT 80.1 H (9.0-12.0) sec INR 8.6 H* (<1.2) Sodium 148 H (137-145) mmol/L Chloride 117 H (98-107) mmol/L BUN 23 H (7-17) mg/dL Glucose 125 H (74-99) mg/dL POC Glucose (mg/dL) 130 H (75-99) mg/dL Calcium 8.2 L (8.4-10.2) mg/dL 09/05/17 Range/Units 04:39 RBC 2.92 L (3.80-5.40) m/uL Hgb 8.3 L (11.4-16.0) gm/dL Hct 26.7 L (34.0-46.0) % Lymphocytes # 0.8 L (1.0-4.8) k/uL PT (9.0-12.0) sec INR (<1.2) Sodium (137-145) mmol/L Chloride (98-107) mmol/L BUN (7-17) mg/dL Glucose (74-99) mg/dL POC Glucose (mg/dL) (75-99) mg/dL Calcium (8.4-10.2) mg/dL Assessment and Plan (1) Closed fracture of right distal femur Current Visit: Yes Status: Acute Code(s): S72.401A - UNSP FRACTURE OF LOWER END OF RIGHT FEMUR, INIT FOR CLOS FX SNOMED Code(s): 016827156 (2) Fall Current Visit: Yes Status: Acute Code(s): W19.XXXA - UNSPECIFIED FALL, INITIAL ENCOUNTER SNOMED Code(s): 1927939 Plan: #1. Nonweightbearing to the right lower extremity. #2. Daily Dressing changes along with heel protectors #2. Continue pain control #4. Continue anticoagulation per medicine #5. We'll continue to follow the patient closely.
--- NOTE | 2017-09-05 09:35 | PN ---
PROGRESS NOTE Mrs. Staples is an 87-year-old female who presented with a fractured hip. Has a history of paroxysmal fibrillation. Yesterday had an episode of atrial fibrillation. She is back in sinus mechanism. She is awake, but confused. She has significant dementia. Hemodynamically, she is stable. She has no history of tachy or bradyarrhythmia at this point. Her blood pressure has been stable. She continued to be on Lipitor 20 mg daily, lisinopril 10 mg twice a day, metoprolol succinate 100 mg daily, and Propafenone 150 mg 3 times a day. Her anticoagulation has been on hold because of an elevated INR. PHYSICAL EXAMINATION: Blood pressure 140/60 with a heart rate in the 80s. LUNGS: Clear, heart regular rate and rhythm, S1, S2. No S3 with systolic murmur. No diastolic murmur. ABDOMEN: Soft, nontender. EXTREMITIES: No edema. LAB DATA: Revealed an INR of 8.6, BUN and creatinine 23 and 0.67. Her hemoglobin is 8.3. IMPRESSION: 1. Paroxysmal fibrillation remains in sinus mechanism. 2. Status post hip fracture and surgery. 3. Advanced dementia. 4. History of hypertension. 5. History of hyperlipidemia. 6. Coagulopathy. RECOMMENDATION: From the cardiac standpoint, will continue current therapy. I seen no reason for further cardiac workup. Her INR is being managed by the surgical team and Dr. Rosen. Will see on an as-needed basis. Please feel free to call us for any questions. MMODL / IJN: [id number] /
--- NOTE | 2017-09-05 10:03 | P.CONS ---
History of Present Illness - Reason for Consult Consult date: 09/05/17 Wound care, pressure ulcers - History of Present Illness This is an 87-year-old female patient that was admitted to the hospital on August 30 after sustaining a right distal femoral fracture at her AFC. Patient has subsequently underwent ORIF with Dr. Alexis. Patient did have a drop in her hemoglobin and received 2 units packed RBCs. She has been on Coumadin and Lovenox for DVT prophylaxis. Patient has history of atrial tachycardia and developed atrial fibrillation with RVR yesterday and was transferred to ICU as an overflow for selective care. Cardiology consult was added. At the same time, patient developed significant diarrhea for which a fecal management system was placed and had a total of 600 ML's out yesterday. Output has slowed today. C. difficile toxin was negative. Approximate 2 days ago patient was left on a bedpan for an extended period of time and developed decubitus ulcers to bilateral buttocks and coccyx. Patient also has a blister to the right heel. Patient is now in a sinus rhythm. Her INR jumped yesterday to 4.7 and today is 8.6 and was given 1 dose of vitamin K this morning. Coumadin has been on hold as well as Lovenox. White count has been normal and patient has been afebrile. During her course, patient is also been treated for urinary tract infection initially with ceftriaxone and urine culture returned positive for Enterococcus faecalis and yesterday she was switched to Augmentin. Noted electrolyte abnormalities with hypernatremia and hypokalemia. Hemoglobin is currently at 8.3. Patient has underlying dementia and is unable to provide historical information. Discharge plan is for [facility] and eventually returned to her adult foster fpc Review of Systems ROS unobtainable: due to mental status Past Medical History Past Medical History: Dementia, GERD/Reflux, Hyperlipidemia, Hypertension, Memory Impairment, Musculoskeletal Disorder, Osteoarthritis (OA), Supraventricular Tachycardia (SVT), Thyroid Disorder Additional Past Medical History / Comment(s): cataracts samantha History of Any Multi-Drug Resistant Organisms: None Reported Past Surgical History: Cholecystectomy, Orthopedic Surgery, Tonsillectomy Additional Past Surgical History / Comment(s): left hip plate, right knee replaced, partial thyroid removed Past Anesthesia/Blood Transfusion Reactions: Previous Problems w/ Anesthesia, Motion Sickness Past Psychological History: No Psychological Hx Reported Smoking Status: Never smoker Past Alcohol Use History: Occasional, Rare Past Drug Use History: None Reported - Past Family History Mother Family Medical History: Coronary Artery Disease (CAD) (Mother at age 74 from CAD and diabetes complication.) Father Family Medical History: Neurologic Disorder (Father at age of 76 from Parkinson.) Brother(s) Family Medical History: Coronary Artery Disease (CAD), Diabetes Mellitus ( Patient has one brother with diabetes and CAD.) Sister(s) Family Medical History: COPD (Sister with history of COPD and permanent pacemaker.) Medications and Allergies Home Medications Medication Instructions Recorded Confirmed Type Aspirin 81 mg PO DAILY@199902/15/14 08/30/17 History Docusate [Colace] 100 mg PO BID@0800,199902/15/14 08/30/17 History Ergocalciferol [Vitamin D2 50,000 unit PO Q14D 02/15/14 08/30/17 History (DRISDOL)] Furosemide [Lasix] 20 mg PO BID@0800,1400 02/15/14 08/30/17 History Hydrochlorothiazide [Hydrodiuril] 25 mg PO DAILY@199902/15/14 08/30/17 History Lisinopril [Zestril] 10 mg PO BID@0800,199902/15/14 08/30/17 History Multivitamin/Iron/Folic Acid 1 tab PO DAILY@199902/15/14 08/30/17 History [Centrum Complete Multivit Tab] Propafenone HCl [Propafenone HCl 225 mg PO BID@0800,199902/15/14 08/30/17 History ER] Simvastatin [Zocor] 40 mg PO DAILY@199902/15/14 08/30/17 History Cranberry Fruit Concentrate [Azo 250 mg PO DAILY@199906/16/17 08/30/17 History Cranberry] Levothyroxine Sodium [Synthroid] 175 mcg PO DAILY 06/16/17 08/30/17 History Metoprolol Succinate [Toprol XL] 100 mg PO DAILY@0800 06/16/17 08/30/17 History Sertraline HCl [Zoloft] 25 mg PO DAILY@199906/16/17 08/30/17 History Vit C/E/Zn/Coppr/Lutein/Zeaxan 2 cap PO DAILY@199906/16/17 08/30/17 History [Preservision Areds 2 Softgel] ALPRAZolam [Xanax] 0.25 mg PO TID@0800,1400,2000 08/11/17 08/30/17 History Ensure 0.5 can PO BID 08/11/17 08/30/17 History Loratadine [Claritin] 10 mg PO DAILY 08/11/17 08/30/17 History Omeprazole 20 mg PO DAILY 08/11/17 08/30/17 History Potassium Chloride ER [K-Dur 20] 10 meq PO DAILY 08/11/17 08/30/17 History Acetaminophen [Acetaminophen ER] 650 mg PO Q6HR PRN #90 tablet.er 09/03/17 Rx Sennosides [Senokot] 1 tab PO BID #60 tablet 09/03/17 Rx Allergies Allergy/AdvReac Type Severity Reaction Status Date / Time codeine Allergy Rash/Hives Verified 08/30/17 16:55 lorazepam [From Ativan] Allergy Anaphylaxis Verified 08/30/17 16:55 meperidine HCl [From Demerol] Allergy Rash/Hives Verified 08/30/17 16:55 Physical Exam Vitals: Vital Signs Temp Pulse Pulse Pulse Resp BP Pulse Ox 09/05/17 06:00 80 24 139/104 98 09/05/17 04:00 80 09/05/17 02:00 98.0 F 88 20 140/61 96 09/04/17 22:00 97.6 F 91 22 137/82 98 09/04/17 20:00 81 09/04/17 18:00 83 09/04/17 16:00 98.2 F 86 81 16 143/70 98 09/04/17 14:00 85 09/04/17 12:00 85 127/62 09/04/17 11:04 85 09/04/17 09:00 145 H 09/04/17 08:45 140 H Intake and Output 09/04/17 09/05/17 09/05/17 22:59 06:59 14:59 Intake Total 20 100 Output Total 300 250 Balance -280 -150 Intake: Intake, IV Titration 100 Amount Potassium Chloride 10 meq 100 In Water For Injection 1 100ml.bag @ 100 mls/hr IVPB Q1H [facility] Rx#: [id number] Oral 20 Output: Stool 300 250 Other: Voiding Method Indwelling Catheter Indwelling Catheter # Voids 1 1 Weight 74.389 kg Gen: This is an 87-year-old female. She is awake and alert. Doesn't lay confused. HEENT: Head is atraumatic, normocephalic. Pupils equal, round. Sclerae is anicteric. Oral mucous membranes are dry. NECK: Supple. No JVD. No lymphadenopathy. No thyromegaly. LUNGS: Clear to auscultation. No wheezes or rhonchi. No intercostal retractions. HEART: Regular rate and rhythm. Systolic murmur. ABDOMEN: Soft. Bowel sounds are present. No masses. No tenderness. EXTREMITIES: No pedal edema. No calf tenderness. Dressing in place to the right hip is dry and intact. No breakthrough bleeding or drainage. Right heel noted to have a blister in place. Patient is also noted to have a stage II decubitus ulcer to the bilateral buttocks and sacrum area. NEUROLOGICAL: Patient is awake, alert and oriented to person only. Generalized weakness. Results Results: Laboratory Results WBC 7.7 k/uL (3.8-10.6) 09/05/17 04:39 RBC 2.92 m/uL (3.80-5.40) L 09/05/17 04:39 Hgb 8.3 gm/dL (11.4-16.0) L 09/05/17 04:39 Hct 26.7 % (34.0-46.0) L 09/05/17 04:39 MCV 91.3 fL (80.0-100.0) 09/05/17 04:39 MCH 28.5 pg (25.0-35.0) 09/05/17 04:39 MCHC 31.2 g/dL (31.0-37.0) 09/05/17 04:39 RDW 15.1 % (11.5-15.5) 09/05/17 04:39 Plt Count 239 k/uL (150-450) 09/05/17 04:39 Neutrophils % 78 % 09/05/17 04:39 Lymphocytes % 11 % 09/05/17 04:39 Monocytes % 6 % 09/05/17 04:39 Eosinophils % 2 % 09/05/17 04:39 Basophils % 0 % 09/05/17 04:39 Neutrophils # 6.0 k/uL (1.3-7.7) 09/05/17 04:39 Lymphocytes # 0.8 k/uL (1.0-4.8) L 09/05/17 04:39 Monocytes # 0.5 k/uL (0-1.0) 09/05/17 04:39 Eosinophils # 0.1 k/uL (0-0.7) 09/05/17 04:39 Basophils # 0.0 k/uL (0-0.2) 09/05/17 04:39 Hypochromasia Slight 09/04/17 06:24 PT 80.1 sec (9.0-12.0) H 09/05/17 04:39 INR 8.6 (<1.2) H* 09/05/17 04:39 Sodium 148 mmol/L (137-145) H 09/05/17 04:39 Potassium 3.7 mmol/L (3.5-5.1) 09/05/17 04:39 Chloride 117 mmol/L (98-107) H 09/05/17 04:39 Carbon Dioxide 25 mmol/L (22-30) 09/05/17 04:39 Anion Gap 6 mmol/L 09/05/17 04:39 BUN 23 mg/dL (7-17) H 09/05/17 04:39 Creatinine 0.67 mg/dL (0.52-1.04) 09/05/17 04:39 Est GFR (MDRD) Af Amer >60 (>60 ml/min/1.73 sqM) 09/05/17 04:39 Est GFR (MDRD) Non-Af >60 (>60 ml/min/1.73 sqM) 09/05/17 04:39 Glucose 125 mg/dL (74-99) H 09/05/17 04:39 POC Glucose (mg/dL) 130 mg/dL (75-99) H 09/04/17 11:05 POC Glu Copier Technician ID Amara Olvera 09/04/17 11:05 Calcium 8.2 mg/dL (8.4-10.2) L 09/05/17 04:39 Magnesium 1.9 mg/dL (1.6-2.3) 09/04/17 16:11 Total Bilirubin 0.5 mg/dL (0.2-1.3) 09/04/17 06:24 AST 52 U/L (14-36) H 09/04/17 06:24 ALT 36 U/L (9-52) 09/04/17 06:24 Alkaline Phosphatase 115 U/L (38-126) 09/04/17 06:24 Total Protein 5.3 g/dL (6.3-8.2) L 09/04/17 06:24 Albumin 2.6 g/dL (3.5-5.0) L 09/04/17 06:24 Urine Color Yellow 09/01/17 11:15 Urine Appearance Turbid (Clear) H 09/01/17 11:15 Urine pH 5.5 (5.0-8.0) 09/01/17 11:15 Ur Specific [place] 1.014 (1.001-1.035) 09/01/17 11:15 Urine Protein Trace (Negative) H 09/01/17 11:15 Urine Glucose (UA) Negative (Negative) 09/01/17 11:15 Urine Ketones Negative (Negative) 09/01/17 11:15 Urine Blood Small (Negative) H 09/01/17 11:15 Urine Nitrite Negative (Negative) 09/01/17 11:15 Urine Bilirubin Negative (Negative) 09/01/17 11:15 Urine Urobilinogen <2.0 mg/dL (<2.0) 09/01/17 11:15 Ur Leukocyte Esterase Large (Negative) H 09/01/17 11:15 Urine RBC 29 /hpf (0-5) H 09/01/17 11:15 Urine WBC >182 /hpf (0-5) H 09/01/17 11:15 Urine WBC Clumps Moderate /hpf (None) H 09/01/17 11:15 C. difficile (EIA) Intrp Negative (Negative) 09/04/17 19:05 Blood Type A Positive 09/01/17 08:56 Blood Type Recheck No 09/01/17 08:56 Antibody Screen NEGATIVE 09/01/17 08:56 Crossmatch See Detail 09/01/17 08:56 Spec Expiration Date 09/04/2017 - 0676 09/01/17 08:56 CBC & Chem 7: 09/05/17 04:39 09/05/17 09:15 Labs: Abnormal Lab Results - Last 24 Hours (Table) 09/04/17 09/05/17 09/05/17 Range/Units 11:05 04:39 04:39 RBC (3.80-5.40) m/uL Hgb (11.4-16.0) gm/dL Hct (34.0-46.0) % Lymphocytes # (1.0-4.8) k/uL PT 80.1 H (9.0-12.0) sec INR 8.6 H* (<1.2) Sodium 148 H (137-145) mmol/L Chloride 117 H (98-107) mmol/L BUN 23 H (7-17) mg/dL Glucose 125 H (74-99) mg/dL POC Glucose (mg/dL) 130 H (75-99) mg/dL Calcium 8.2 L (8.4-10.2) mg/dL 09/05/17 Range/Units 04:39 RBC 2.92 L (3.80-5.40) m/uL Hgb 8.3 L (11.4-16.0) gm/dL Hct 26.7 L (34.0-46.0) % Lymphocytes # 0.8 L (1.0-4.8) k/uL PT (9.0-12.0) sec INR (<1.2) Sodium (137-145) mmol/L Chloride (98-107) mmol/L BUN (7-17) mg/dL Glucose (74-99) mg/dL POC Glucose (mg/dL) (75-99) mg/dL Calcium (8.4-10.2) mg/dL Assessment and Plan Plan: This is an 87-year-old female who presented to the hospital due to a right sided distal femur fracture status post ORIF. Her course has been complicated by enterococcus urinary tract infection for which she is currently on Augmentin, decubitus ulcers to bilateral buttocks and coccyx secondary to bedpan, diarrhea and electrolyte abnormalities, new onset paroxysmal atrial fibrillation with rapid ventricular response. Local wound care will be addressed. Continue supportive care. Further recommendations as patient progresses. The above dictated assessment and findings were discussed with Dr. Hi. The impression and plan of care have been directed as dictated. Faby Rosa nurse practitioner acting as scribe for Dr. Hi.
--- NOTE | 2017-09-05 12:22 | P.PN ---
Subjective Progress Note Date: 09/05/17 This is an 87-year-old female patient of Dr. Garrett with past medical history of dementia, hypertension, hyperlipidemia, supraventricular tachycardia , generalized osteoarthritis, hypothyroidism, patient was in her assisted living where she was trying to go to the bathroom and she fell and landed on the right side she sustained a distal right femur fracture for which she was evaluated in the emergency department and admitted under orthopedic surgery and we were consulted for preoperative medical clearance. Patient is very poor historian she has significant dementia and she does not remember what happened, most information was gathered from the chart as the patient lives in [facility] living [facility], where the fall happened and the patient was shipped to the ER at [facility] because of that and she was found to have a right distal femur fracture. Patient scheduled to go for ORIF of the right femur tomorrow morning. I reviewed her 12-lead EKG that showed normal sinus rhythm with nonspecific ST- T changes, echocardiogram was obtained for further evaluation. 09/01: Patient has undergone open reduction internal fixation today with Dr. Alexis. Hemoglobin dropped to 7.7 and patient is undergoing transfusion 2 units packed RBCs. Repeat CBC is ordered for after transfusion. Patient has been started on Coumadin protocol and Lovenox added to bridge patient. We will repeat chemistry will be added for tomorrow to monitor acute kidney injury. Urinalysis done this morning is showing turbid, blood small, leukoesterase large , RBCs 29, WBC greater than 182 and WBC clumps moderate. Urine culture was sent. Echocardiogram report is pending. 09/02: Repeat hemoglobin is 10.1. A shunt has been afebrile. INR is at 1.3. Patient is scheduled to receive 5 mg of Coumadin tonight. A shunt appears to be comfortable. Social work is working with family for discharge plan. 09/03: She has had a drop in her hemoglobin to 8.6. INR is 1.9. He is scheduled for Coumadin 5 mg tonight. Maguire catheter to be removed today. Urine culture was positive for Enterococcus faecalis. Antibiotics will be changed over to oral Levaquin. Anticipate discharge to [facility] or [facility] tomorrow. 09/04: Patient developed new onset of atrial fibrillation with rapid ventricular response and transferred to ICU as an overflow for selective care. Cardiology consult requested. Patient also developed profuse diarrhea for which fecal management system was placed and C. difficile toxin will be checked. Patient has significant non-stage decubitus ulcer from sitting on a bedpan for an extended period of time and blister to her right heel.. Patient subsequently converted to normal sinus rhythm. INR is 4.7 and Coumadin placed on hold. Potassium will be replaced. 09/05: Patient is continued on normal sinus rhythm. Cardiology has signed off and following on an as-needed basis only. She has been hemodynamically stable. She is eating very little this morning. Diarrhea is slowing become management system is still in place. Dr. iH has been added for wound care for decubitus ulcers and blister on the right heel. Patient will be transferred out of the intensive care unit and planned for discharge to [facility] tomorrow Objective - Vital Signs Vital signs: Vital Signs Temp 98.0 F 09/05/17 02:00 Pulse 80 09/05/17 06:00 Resp 24 09/05/17 08:00 BP 139/104 09/05/17 06:00 Pulse Ox 98 09/05/17 06:00 Intake & Output 09/04/17 09/05/17 09/05/17 18:59 06:59 18:59 Intake Total 580 120 Output Total 550 Balance 580 -430 Weight 74.389 kg 74.389 kg Intake: Intake, IV Titration 100 100 Amount Potassium Chloride 10 meq 100 In Water For Injection 1 100ml.bag @ 100 mls/hr IVPB Q1H [facility] Rx#: [id number] Potassium Chloride 20 meq 100 In Water For Injection 1 100ml.bag @ 50 mls/hr IVPB Q2HR [facility] Rx#: [id number] Oral 480 20 Output: Stool 550 Other: Voiding Method Indwelling Catheter Indwelling Catheter # Voids 1 1 1 - Exam General appearance: average body habitus, no acute distress - Neck Neck: no lymphadenopathy, no rigidity, no stridor, no thyromegaly Carotids: bilateral: upstroke delayed Thyroid: bilateral: normal size - Respiratory Respiratory: bilateral: diminished, negative: dullness, rales, rhonchi, wheezing , prolonged expiration, prolonged inspiration - Cardiovascular Rhythm: regular Heart sounds: normal: S1, S2 Abnormal Heart Sounds: systolic murmur, no S3 Gallop, no S4 Gallop, no click - Gastrointestinal General gastrointestinal: normal bowel sounds, no rigid, no tenderness, no umbilical hernia, no ventral hernia - Integumentary Integumentary: normal, normal turgor - Neurologic Neurologic: CNII-XII intact, focal deficits - Musculoskeletal Musculoskeletal: generalized weakness, strength equal bilaterally - Psychiatric Psychiatric: no A&O x's 3, no appropriate affect, no intact judgment & insight - Labs CBC & Chem 7: 09/05/17 04:39 09/05/17 09:15 Labs: Abnormal Lab Results - Last 24 Hours (Table) 09/04/17 09/05/17 09/05/17 Range/Units 11:05 04:39 04:39 RBC (3.80-5.40) m/uL Hgb (11.4-16.0) gm/dL Hct (34.0-46.0) % Lymphocytes # (1.0-4.8) k/uL PT 80.1 H (9.0-12.0) sec INR 8.6 H* (<1.2) Sodium 148 H (137-145) mmol/L Chloride 117 H (98-107) mmol/L BUN 23 H (7-17) mg/dL Glucose 125 H (74-99) mg/dL POC Glucose (mg/dL) 130 H (75-99) mg/dL Calcium 8.2 L (8.4-10.2) mg/dL 09/05/17 Range/Units 04:39 RBC 2.92 L (3.80-5.40) m/uL Hgb 8.3 L (11.4-16.0) gm/dL Hct 26.7 L (34.0-46.0) % Lymphocytes # 0.8 L (1.0-4.8) k/uL PT (9.0-12.0) sec INR (<1.2) Sodium (137-145) mmol/L Chloride (98-107) mmol/L BUN (7-17) mg/dL Glucose (74-99) mg/dL POC Glucose (mg/dL) (75-99) mg/dL Calcium (8.4-10.2) mg/dL Assessment and Plan Plan: 1. Status post fall with right distal femur fracture status post open reduction internal fixation. 2. Acute kidney injury due to poor oral intake of fluid. 3. Acute blood loss anemia, transfusion 2 units packed RBCs. Monitor hemoglobin 4. Enterococcus urinary tract infection. Rocephin changed to Augmentin. 5. Hypertension and hypertensive cardiovascular disease. Continue metoprolol 100 mg orally once every day as well as lisinopril 10 mg orally once every day. 6. Hypothyroidism. Continue patient on Synthroid 175 g orally once every day. 7. Hyperlipidemia. Continue patient on Lipitor 10 mg orally once every day. 8. Atrial tachycardia. Continue patient on propafenone 150 mg orally 3 times every day. 9. Vascular dementia. Monitor patient for behavioral disturbances postoperatively. 10. Osteoarthritis. Continue current pain management. 11. Generalized anxiety disorder. Continue with sertraline 25 mg orally once every day. 12. ALLERGIC rhinitis. Continue loratadine 10 mg orally once every day. 13. Vitamin D deficiency. Continue vitamin D 50,000 units once every week. 14. DVT prophylaxis. Lovenox discontinued, Coumadin keep her INR between 2- 3. Coumadin currently on hold due to elevated INR 15. GI prophylaxis. Start the patient on Protonix 40 mg orally daily. 16. Osteoporosis. Patient will need to be started on prolia twice a year as an outpatient. 17. New onset atrial fibrillation, probable paroxysmal atrial fibrillation. Patient is already on metoprolol and Rythmol. Cardiology consult. 18. Stage II decubitus ulcer to the buttocks and sacrum. Optive foam. Blister to the right heel. Boot in place. 19. New onset diarrhea. C. difficile toxin negative. Patient has fecal management system in place. 20. Coagulopathy secondary to Coumadin and diarrhea. Coumadin is on hold. Continue to check PT/INR. Vitamin K 1 dose was ordered. Patient is no CODE STATUS. Discharge plan: [facility] on Saturday Impression and plan of care have been directed as dictated by the signing physician. Faby Rosa nurse practitioner acting as scribe for signing physician.
[2017-09-05] MEDS: MULTIVITAMINS, THERA 1 EACH TAB PO SCH (14:20)
[2017-09-05 16:24] LABS: Glucose,Whole Blood 137 mg/dL (75-99)
[2017-09-05] MEDS: SENNOSIDES-DOCUSATE SODIUM 1 EACH TAB PO SCH (21:41)
--- NOTE | 2017-09-05 22:38 | P.CON ---
Consult Note - . Consult date: 09/05/17 Assessment/Plan:: This is an 87-year-old female patient that was admitted to the hospital on August 30 after sustaining a right distal femoral fracture at her AFC. Patient has subsequently underwent ORIF with Dr. Alexis. Patient did have a drop in her hemoglobin and received 2 units packed RBCs. She has been on Coumadin and Lovenox for DVT prophylaxis. Patient has history of atrial tachycardia and developed atrial fibrillation with RVR yesterday and was transferred to ICU as an overflow for selective care. Cardiology consult was added. At the same time, patient developed significant diarrhea for which a fecal management system was placed and had a total of 600 ML's out yesterday. Output has slowed today. C. difficile toxin was negative. Approximate 2 days ago patient was left on a bedpan for an extended period of time and developed decubitus ulcers to bilateral buttocks and coccyx. Patient also has a blister to the right heel. Patient is now in a sinus rhythm. Her INR jumped yesterday to 4.7 and today is 8.6 and was given 1 dose of vitamin K this morning. Coumadin has been on hold as well as Lovenox. White count has been normal and patient has been afebrile. During her course, patient is also been treated for urinary tract infection initially with ceftriaxone and urine culture returned positive for Enterococcus faecalis and yesterday she was switched to Augmentin. Noted electrolyte abnormalities with hypernatremia and hypokalemia. Hemoglobin is currently at 8.3. Patient has underlying dementia and is unable to provide historical information. Discharge plan is for [facility] and eventually returned to her adult foster [facility] patient is feeling better. Please see the consult note as dictated by nurse practitioner Mrs. Faby Rosa. Patient is comfortable and confused. She related that when she is stable from her fracture she will go to the extended care facility for therapy. Patient has no severe urinary symptoms but does have dementia. Cultures positive for she's having no fever or leukocytosis. Would not plan on any further Augmentin therapy given the steady and diarrhea that she is suffering from. Local wound care will be applied with the foam dressings and protective zinc. I agree with evaluation, assessment and plan as dictated by nurse practitioner Mrs. Faby Rosa.
[2017-09-06 01:43] VITALS: BP 132/89; PULSE 78; RESP 16; TEMP 98.5
--- NOTE | 2017-09-06 08:13 | P.DS ---
Providers Date of admission: 08/30/17 20:51 Expected date of discharge: 09/06/17 Attending physician: Castro Alexis Consults: 08/31/17 08:50 Consult Physician Routine Consulting Provider: Gabriela Rosen Consult Reason/Comments: Medical Management Do you want consulting provider notified?: Already Contacted 09/04/17 10:27 Consult Physician Routine Consulting Provider: Solomon Hi Consult Reason/Comments: wound care, pressure ulcers Do you want consulting provider notified?: Yes 09/04/17 12:47 Consult Physician Routine Consulting Provider: Isadora Simmons Consult Reason/Comments: new onset Afib Do you want consulting provider notified?: Yes Primary care physician: Solomon Seoad - Discharge Diagnosis(es) (1) Closed fracture of right distal femur Current Visit: Yes Status: Acute (2) Fall Current Visit: Yes Status: Acute Hospital Course: This is a 87-year-old female with a history of dementia who sustained a right distal femur fracture after a fall. The patient presents for evaluation. After discussion and consideration patient and family elect to proceed with ORIF right distal femur. The patient is seen preoperatively by Dr. Alexis and cleared for surgery. Patient is admitted to [facility] on 08/30/2017 and ORIF of right distal femur was performed on 09/01/2017. The procedures performed without complication or sequelae. The patient is doing well postoperatively. Labs and vital signs are stable on day of discharge. Patient did develop new onset atrial fibrillation with rapid ventricular response which was managed my internal medicine and cardiology. Patient is now in normal sinus rhythm. Patient also developed decubitus ulcers to coccyx, and buttocks after being left on a bed mckinley for a prolonged duration of time during her stay in the hospital. Patient also developed a blister to the right heel during her admission. Wound care is being managed by infectious disease. On day of discharge patient's incision is healing well. There is minimal erythema. There is minimal drainage noted at this time. There is minimal soft tissue swelling to the knee. Patient has full foot and ankle motion without difficulty or pain. Calf is soft and nontender. Neurovascular status to the right lower extremity is intact. Patient is discharged to rehab in good condition. Please see med rec for accurate list of home medications. Patient Condition at Discharge: Good Plan - Discharge Summary Discharge Rx Participant: No New Discharge Prescriptions: New Acetaminophen [Acetaminophen ER] 650 mg PO Q6HR PRN #90 tablet.er PRN Reason: Pain Sennosides [Senokot] 1 tab PO BID #60 tablet No Action Lisinopril [Zestril] 10 mg PO BID@08,1999 Propafenone HCl [Propafenone HCl ER] 225 mg PO BID@799,1999 Hydrochlorothiazide [Hydrodiuril] 25 mg PO DAILY@1999 Furosemide [Lasix] 20 mg PO BID@0800,1400 Docusate [Colace] 100 mg PO BID@08,1999 Aspirin 81 mg PO DAILY@1999 Simvastatin [Zocor] 40 mg PO DAILY@1999 Ergocalciferol [Vitamin D2 (DRISDOL)] 50,000 unit PO Q14D Multivitamin/Iron/Folic Acid [Centrum Complete Multivit Tab] 1 tab PO DAILY@ 1999 Cranberry Fruit Concentrate [Azo Cranberry] 250 mg PO DAILY@1999 Levothyroxine Sodium [Synthroid] 175 mcg PO DAILY Metoprolol Succinate [Toprol XL] 100 mg PO DAILY@799 Sertraline HCl [Zoloft] 25 mg PO DAILY@1999 Vit C/E/Zn/Coppr/Lutein/Zeaxan [Preservision Areds 2 Softgel] 2 cap PO DAILY@ 1999 ALPRAZolam [Xanax] 0.25 mg PO TID@0800,1399,1999 Ensure 0.5 can PO BID Loratadine [Claritin] 10 mg PO DAILY Omeprazole 20 mg PO DAILY Potassium Chloride ER [K-Dur 20] 10 meq PO DAILY Discharge Medication List Aspirin 81 mg PO DAILY@199902/15/14 [History] Docusate [Colace] 100 mg PO BID@0800,199902/15/14 [History] Ergocalciferol [Vitamin D2 (DRISDOL)] 50,000 unit PO Q14D 02/15/14 [History] Furosemide [Lasix] 20 mg PO BID@0800,1400 02/15/14 [History] Hydrochlorothiazide [Hydrodiuril] 25 mg PO DAILY@199902/15/14 [History] Lisinopril [Zestril] 10 mg PO BID@0800,199902/15/14 [History] Multivitamin/Iron/Folic Acid [Centrum Complete Multivit Tab] 1 tab PO DAILY@ 199902/15/14 [History] Propafenone HCl [Propafenone HCl ER] 225 mg PO BID@0800,199902/15/14 [History] Simvastatin [Zocor] 40 mg PO DAILY@199902/15/14 [History] Cranberry Fruit Concentrate [Azo Cranberry] 250 mg PO DAILY@199906/16/17 [ History] Levothyroxine Sodium [Synthroid] 175 mcg PO DAILY 06/16/17 [History] Metoprolol Succinate [Toprol XL] 100 mg PO DAILY@0800 06/16/17 [History] Sertraline HCl [Zoloft] 25 mg PO DAILY@199906/16/17 [History] Vit C/E/Zn/Coppr/Lutein/Zeaxan [Preservision Areds 2 Softgel] 2 cap PO DAILY@ 199906/16/17 [History] ALPRAZolam [Xanax] 0.25 mg PO TID@0800,1400,199908/11/17 [History] Ensure 0.5 can PO BID 08/11/17 [History] Loratadine [Claritin] 10 mg PO DAILY 08/11/17 [History] Omeprazole 20 mg PO DAILY 08/11/17 [History] Potassium Chloride ER [K-Dur 20] 10 meq PO DAILY 08/11/17 [History] Acetaminophen [Acetaminophen ER] 650 mg PO Q6HR PRN #90 tablet.er 09/03/17 [Rx] Sennosides [Senokot] 1 tab PO BID #60 tablet 09/03/17 [Rx] Follow up Appointment(s)/Referral(s): Solomon Garrett MD [Primary Care Provider] - 1-2 days Sis Zayas [NON-STAFF] - As Needed Castro Alexis DO [Doctor of Osteopathic Medicine] - 10 Days Activity/Diet/Wound Care/Special Instructions: Nonweightbearing to the right lower extremity Daily dressing changes Rest, ice and elevate the right lower extremity Please take medications as prescribed. [facility]. Please call with any questions or concerns, Discharge Disposition: TRANSFER TO SNF/ECF
[2017-09-06] MEDS: PROPAFENONE 150 MG TAB PO SCH (08:29)
[2017-09-06] MEDS: LISINOPRIL 10 MG TAB PO SCH (08:29)
[2017-09-06] MEDS: LEVOTHYROXINE 100 MCG TAB PO SCH (08:30)
[2017-09-06] MEDS: LEVOTHYROXINE 75 MCG TAB PO SCH (08:30)
[2017-09-06] MEDS: LORATADINE 10 MG TAB PO SCH (08:30)
[2017-09-06] MEDS: PANTOPRAZOLE 40 MG TABLET PO SCH (08:30)
[2017-09-06] MEDS: METOPROLOL SUCCINATE (ER) 100 MG TAB.ER.24H PO SCH (08:31)
[2017-09-06 12:17] LABS: HCT 24.3 % (34.0-46.0); HGB 7.7 gm/dL (11.4-16.0); Hypochromasia Slight; MCH 28.8 pg (25.0-35.0); MCHC 31.9 g/dL (31.0-37.0); MCV 90.3 fL (80.0-100.0); Mean Platelet Volume 7.4; Platelet Count 251 k/uL (150-450); RBC 2.69 m/uL (3.80-5.40); RDW 15.8 % (11.5-15.5); WBC 7.8 k/uL (3.8-10.6)
[2017-09-06 12:28] LABS: Anion Gap 7 mmol/L; Blood Urea Nitrogen 22 mg/dL (7-17); Carbon Dioxide 25 mmol/L (22-30); Chloride 115 mmol/L (98-107); Glucose 108 mg/dL (74-99); Potassium 4.2 mmol/L (3.5-5.1); Sodium 147 mmol/L (137-145)
[2017-09-06 13:00] LABS: INR 1.2 (<1.2); Prothrombin Time 11.8 sec (9.0-12.0)
--- NOTE | 2017-09-06 13:16 | P.PN ---
Subjective Progress Note Date: 09/06/17 This is an 87-year-old female patient of Dr. Garrett with past medical history of dementia, hypertension, hyperlipidemia, supraventricular tachycardia , generalized osteoarthritis, hypothyroidism, patient was in her assisted living where she was trying to go to the bathroom and she fell and landed on the right side she sustained a distal right femur fracture for which she was evaluated in the emergency department and admitted under orthopedic surgery and we were consulted for preoperative medical clearance. Patient is very poor historian she has significant dementia and she does not remember what happened, most information was gathered from the chart as the patient lives in [facility], where the fall happened and the patient was shipped to the ER at [facility] because of that and she was found to have a right distal femur fracture. Patient scheduled to go for ORIF of the right femur tomorrow morning. I reviewed her 12-lead EKG that showed normal sinus rhythm with nonspecific ST- T changes, echocardiogram was obtained for further evaluation. 09/01: Patient has undergone open reduction internal fixation today with Dr. Alexis. Hemoglobin dropped to 7.7 and patient is undergoing transfusion 2 units packed RBCs. Repeat CBC is ordered for after transfusion. Patient has been started on Coumadin protocol and Lovenox added to bridge patient. We will repeat chemistry will be added for tomorrow to monitor acute kidney injury. Urinalysis done this morning is showing turbid, blood small, leukoesterase large , RBCs 29, WBC greater than 182 and WBC clumps moderate. Urine culture was sent. Echocardiogram report is pending. 09/02: Repeat hemoglobin is 10.1. A shunt has been afebrile. INR is at 1.3. Patient is scheduled to receive 5 mg of Coumadin tonight. A shunt appears to be comfortable. Social work is working with family for discharge plan. 09/03: She has had a drop in her hemoglobin to 8.6. INR is 1.9. He is scheduled for Coumadin 5 mg tonight. Maguire catheter to be removed today. Urine culture was positive for Enterococcus faecalis. Antibiotics will be changed over to oral Levaquin. Anticipate discharge to [facility] or [facility] tomorrow. 09/04: Patient developed new onset of atrial fibrillation with rapid ventricular response and transferred to ICU as an overflow for selective care. Cardiology consult requested. Patient also developed profuse diarrhea for which fecal management system was placed and C. difficile toxin will be checked. Patient has significant non-stage decubitus ulcer from sitting on a bedpan for an extended period of time and blister to her right heel.. Patient subsequently converted to normal sinus rhythm. INR is 4.7 and Coumadin placed on hold. Potassium will be replaced. 09/05: Patient is continued on normal sinus rhythm. Cardiology has signed off and following on an as-needed basis only. She has been hemodynamically stable. She is eating very little this morning. Diarrhea is slowing become management system is still in place. Dr. Hi has been added for wound care for decubitus ulcers and blister on the right heel. Patient will be transferred out of the intensive care unit and planned for discharge to [facility] tomorrow 09/06: Patient is prepared for discharge to [facility] today. Repeat INR is at 1.2 and hemoglobin is 7.7. Patient will be placed on eliquis at the intermediate as well as ferrous sulfate. Patient will be followed at the intermediate by Dr. Rosen. Objective - Vital Signs Vital signs: Vital Signs Temp 98.5 F 09/06/17 01:42 Pulse 78 09/06/17 01:42 Resp 16 09/06/17 01:42 BP 132/89 09/06/17 01:42 Pulse Ox 94 L 09/06/17 07:09 Intake & Output 09/05/17 09/06/17 09/06/17 18:59 06:59 18:59 Intake Total 240 500 Balance 240 500 Weight 74.389 kg 74.389 kg Intake: Oral 240 500 Other: Voiding Method Indwelling Catheter Diaper Diaper Incontinent # Voids 1 2 2 - Exam General appearance: average body habitus, no acute distress - Neck Neck: no lymphadenopathy, no rigidity, no stridor, no thyromegaly Carotids: bilateral: upstroke delayed Thyroid: bilateral: normal size - Respiratory Respiratory: bilateral: diminished, negative: dullness, rales, rhonchi, wheezing , prolonged expiration, prolonged inspiration - Cardiovascular Rhythm: regular Heart sounds: normal: S1, S2 Abnormal Heart Sounds: systolic murmur, no S3 Gallop, no S4 Gallop, no click - Gastrointestinal General gastrointestinal: normal bowel sounds, no rigid, no tenderness, no umbilical hernia, no ventral hernia - Integumentary Integumentary: normal, normal turgor - Neurologic Neurologic: CNII-XII intact, focal deficits - Musculoskeletal Musculoskeletal: generalized weakness, strength equal bilaterally - Psychiatric Psychiatric: no A&O x's 3, no appropriate affect, no intact judgment & insight - Labs CBC & Chem 7: 09/06/17 11:59 09/06/17 11:59 Labs: Abnormal Lab Results - Last 24 Hours (Table) 09/05/17 Range/Units 16:21 POC Glucose (mg/dL) 137 H (75-99) mg/dL Assessment and Plan Plan: 1. Status post fall with right distal femur fracture status post open reduction internal fixation. Eliquis for DVT prophylaxis. 2. Acute kidney injury due to poor oral intake of fluid. 3. Acute blood loss anemia, transfusion 2 units packed RBCs. Monitor hemoglobin. Ferrous sulfate 325 mg twice daily 4. Enterococcus urinary tract infection. Rocephin changed to Augmentin. 5. Hypertension and hypertensive cardiovascular disease. Continue metoprolol 100 mg orally once every day as well as lisinopril 10 mg orally once every day. 6. Hypothyroidism. Continue patient on Synthroid 175 g orally once every day. 7. Hyperlipidemia. Continue patient on Lipitor 10 mg orally once every day. 8. Atrial tachycardia. Continue patient on propafenone 150 mg orally 3 times every day. 9. Vascular dementia. Monitor patient for behavioral disturbances postoperatively. 10. Osteoarthritis. Continue current pain management. 11. Generalized anxiety disorder. Continue with sertraline 25 mg orally once every day. 12. ALLERGIC rhinitis. Continue loratadine 10 mg orally once every day. 13. Vitamin D deficiency. Continue vitamin D 50,000 units once every week. 14. DVT prophylaxis. Lovenox discontinued, Coumadin keep her INR between 2- 3. Coumadin currently on hold due to elevated INR 15. GI prophylaxis. Start the patient on Protonix 40 mg orally daily. 16. Osteoporosis. Patient will need to be started on prolia twice a year as an outpatient. 17. New onset atrial fibrillation, probable paroxysmal atrial fibrillation. Patient is already on metoprolol and Rythmol. Cardiology consult. 18. Stage II decubitus ulcer to the buttocks and sacrum. Optive foam. Blister to the right heel. Boot in place. 19. New onset diarrhea. C. difficile toxin negative. Patient has fecal management system in place. 20. Coagulopathy secondary to Coumadin and diarrhea. Coumadin is on hold. Continue to check PT/INR. Vitamin K 1 dose was ordered. Patient is no CODE STATUS. Discharge plan: [facility] under the care of Dr. Rosen. Impression and plan of care have been directed as dictated by the signing physician. Faby Rosa nurse practitioner acting as scribe for signing physician.
[2017-09-06] MEDS: ALPRAZolam 0.25 MG TAB PO SCH (13:56)
[2017-09-06] MEDS: MULTIVITAMINS, THERA 1 EACH TAB PO SCH (13:57)
[2017-09-06] MEDS: SERTRALINE 25 MG TAB PO SCH (13:57)
[2017-09-11] MEDS ORDERED: ERGOCALCIFEROL 50,000 UNIT CAP PO SCH ×2 (09:00)
== END 2017-09-06 13:25 | DRG 481 ==
LOC: EC 16:35 → 3SUR 20:51 → 6ICU 09-04 10:37 → 3SUR 09-05 14:27 → UNDODISIN 09-05 15:00 → 3SUR 09-06 05:16
PROVIDERS: ADMIT Orthopaedic Surgery; ATTEND Orthopaedic Surgery
PROC: 30233N1 Transfusion of Nonautologous Red Blood Cells into Peripheral Vein, Percutaneous Approach (ICD-10-PCS; 2017-09-01)
PROC: 0QSB04Z Reposition Right Lower Femur with Internal Fixation Device, Open Approach (ICD-10-PCS; principal; 2017-09-01 08:00)
DX: M97.11XA Periprosthetic fracture around internal prosthetic right knee joint, initial encounter (principal); S72.401A Unspecified fracture of lower end of right femur, initial encounter for closed fracture; N17.9 Acute kidney failure, unspecified; L89.152 Pressure ulcer of sacral region, stage 2; L89.312 Pressure ulcer of right buttock, stage 2; E87.0 Hyperosmolality and hypernatremia; L89.322 Pressure ulcer of left buttock, stage 2; I47.1 Supraventricular tachycardia; D62 Acute posthemorrhagic anemia; I48.0 Paroxysmal atrial fibrillation; I08.1 Rheumatic disorders of both mitral and tricuspid valves; N39.0 Urinary tract infection, site not specified; Z66 Do not resuscitate; F01.50 Vascular dementia, unspecified severity, without behavioral disturbance, psychotic disturbance, mood disturbance, and anxiety; I11.9 Hypertensive heart disease without heart failure; B95.2 Enterococcus as the cause of diseases classified elsewhere; L89.619 Pressure ulcer of right heel, unspecified stage; E87.6 Hypokalemia; J30.9 Allergic rhinitis, unspecified; E89.0 Postprocedural hypothyroidism; M19.91 Primary osteoarthritis, unspecified site; K21.9 Gastro-esophageal reflux disease without esophagitis; E55.9 Vitamin D deficiency, unspecified; T45.515A Adverse effect of anticoagulants, initial encounter; R79.1 Abnormal coagulation profile; F41.1 Generalized anxiety disorder; M51.37 Other intervertebral disc degeneration, lumbosacral region; M81.0 Age-related osteoporosis without current pathological fracture; E78.5 Hyperlipidemia, unspecified; R19.7 Diarrhea, unspecified; Z79.82 Long term (current) use of aspirin; Z79.899 Other long term (current) drug therapy; Z87.81 Personal history of (healed) traumatic fracture; Z85.841 Personal history of malignant neoplasm of brain; Z90.49 Acquired absence of other specified parts of digestive tract; Z88.5 Allergy status to narcotic agent; Z88.8 Allergy status to other drugs, medicaments and biological substances; W01.0XXA Fall on same level from slipping, tripping and stumbling without subsequent striking against object, initial encounter; Y92.091 Bathroom in other non-institutional residence as the place of occurrence of the external cause
CPT/HCPCS: 36415; 36430; 70450; 71045; 72125; 73502; 80048; 80053; 81001; 83735; 84132; 85025; 85027; 85610; 86850; 86900; 86901; 86920; 87077; 87086; 87186; 87324; 93005; 93306; 94760; 96361; 96374; 96376; 99285